=== PATIENT | female | born 1960 | race Caucasian/White ===

== ENCOUNTER 2019-05-30 11:55 | Inpatient (IN) | payer BC ==
[~2019-05-30] VITALS: Ht 157.5 cm; Wt 161.5 kg
[2019-05-30 13:01] LABS: ABSOLUTE EOSINOPHILS 0.1 thou/uL (0.0-0.7); ABSOLUTE LYMPHOCYTES 1.1 thou/uL (0.8-5.3); ABSOLUTE MONOCYTES 1.6 thou/uL (0.0-1.2); ABSOLUTE NEUTROPHILS 13.1 thou/uL (1.6-8.1); BASOPHILS 0.3 %; EOSINOPHILS 0.4 %; HEMATOCRIT 41.5 % (37.0-47.0); HEMOGLOBIN 13.2 gm/dL (12.0-15.0); MCH 22.7 pg (26.0-34.0); MCHC 31.8 g/dL (28.0-37.0); MCV 71.4 fL (80.0-100.0); MONOCYTES 9.9 %; MPV 8.4 fl. (7.2-11.1); NUCLEATED RBCS 0 /100WBC; PLATELET COUNT* 395 thou/uL (150-400); POLYS 82.4 %; RBC 5.82 mil/uL (4.20-5.00); RDW-CV 21.4 % (10.5-14.5)
[2019-05-30 13:11] LABS: CALCIUM 9.1 mg/dL (8.5-10.1); CREATININE 2.5 mg/dL (0.6-1.3)
[2019-05-30 13:23] LABS: PLATELET ESTIMATE ADEQUATE
[2019-05-30 13:27] LABS: ALBUMIN 2.3 g/dL (3.4-5.0); TOTAL BILIRUBIN 0.8 mg/dL (<0.1-1.0); TOTAL PROTEIN 8.4 g/dL (6.4-8.2)
--- NOTE | 2019-05-30 15:00 | NUR ---
WOUND CARE NOTE: REQUESTED TO SEE PATIENT WITH MULTIPLE WOUNDS. UPON ENTERING ROOM, FOUL ODOR NOTED. NOTED FECES TO BOTTOMS OF FEET DURING CLEANSING WITH SOAP AND WATER. TOENAILS ARE EITHER LONG AND AMERICO'S HORN LIKE OR MISSING. PATIENT ADMITS TO THEM FALLING OFF. BILATERAL LEGS ARE EDEMATOUS CHRONIC THICKENING NOTED, POSSIBLY FROM CHRONIC LYMPHEDEMA. RIGHT HEEL: DEEP TISSUE INJURY MEASURING APPROXIMATELY 2X2. NO OPENINGS OR DRAINAGE NOTED. PURPLE DISCOLORATION. LEFT OPEN TO AIR LEFT HEEL: UNSTAGEABLE PRESSURE ULCER MEASURING 7.2X6X0.8. BLACK, MOIST, ESCHAR TO APROXIMATELY 85% OF THE WOUND BED. 15% RED, MOIST, GRANULAR. LEONARDO-WOUND IS DRY, PEELING, DISCOLORED. CLEANSED HEEL WITH SOAP AND WATER, PATTED DRY. APPLIED AQUACEL AG THEN APPLIED OPTIFOAM AG AND SECURED WITH KERLIX. BILATERAL LEGS WERE WASHED WITH SOAP AND WATER, APPLIED LOTION TO INTACT SKIN. RIGHT GONCALVES WITH AN ULCERATION MEASURING APPROXIMATELY 1.5X1.5X0.3. PINK, MOIST WOUND BED. APPLIED AQUACEL AG AND COVERED WITH BORDERED FOAM. RIGHT, MEDIAL, HALLUX WITH LESION, PATIENT STATES IT IS FROM A RUG BURN. WOUND MEASURES 4.5X1.2X0.2. MOIST, YELLOW, RED WOUND BED. CLEANSED WITH SOAP AND WATER, PATTED DRY. APPLIED AQUACEL AG AND COVERED WITH BORDERED FOAM. DENUDED SKIN UNDERNEATH ABDOMINAL FOLD AND GROIN SITES. MULTIPLE LESIONS IN THESE AREAS TOO, CANDIDIA RASH/FUNGAL RASH APPARENT. UNABLE TO FULL ASSESS THIS AREA. BILATERAL BUTTOCKS AND UPPER POSTERIOR THIGHS WITH DERMATITIS COULD BE FROM INCONTINENCE OR DIAPHORESIS. LEFT ISCHIAL TUBEROSITY WITH DEEP TISSUE INJURY APPROXIMATELY 7X7X0.1. PURPLE DISCOLORATION. DIFFICULT TO PERFORM FULL ASSESSMENT AT THIS TIME DUE TO PATIENT'S PAIN AND LIMITATIONS IN ASSISTING DURING ASSESSMENT. PATIENT'S DAUGHTER AND SIGNIFICANT OTHER IN ROOM DURING ASSESSMENT TOO. UPDATED ON FINDINGS. RECOMMEND COMPELLA LOW AIR LOSS MATTRESS KEEP HEELS OFF BED TURN Q2 HOURS LIMIT HOB <30 DEGREES IF PATIENT CAN TOLERATE ENCOURAGE GOOD NUTRTION/HYDRATION BATHS DAILY PODIATRY CONSULT-TOENAILS TRIM AND LEFT HEEL ULCERATION
--- NOTE | 2019-05-30 15:44 | EKG ---
[place] [address] ELECTROCARDIOGRAM REPORT Name: CLAUDIAAUGUSTIN Room: [place] [address] ADM IN ..#: [id number] Admission: 05/30/19 Attend Phys: Allison Cordon MD Discharge: Date of : 62 Report #: [id number] THIS REPORT FOR: //name// [facility] ED Test Date: 2019-05-30 Test Time: 14:11:03 Pat Name: AUGUSTIN TAYLOR Department: Room: [facility] Gender: F Mental Health Counselor: : 1960 Requested By: Stacie Faustin Order Number: [id number] MD: Amrik Covarrubias Measurements Intervals [place] Rate: 110 P: 77 VT: 151 QRS: 84 QRSD: 116 T: 46 QT: 350 QTc: 474 Interpretive Statements Sinus tachycardia LAE, consider biatrial enlargement Incomplete right bundle branch block Low voltage, precordial leads nonspecific ST-T abnormalities No previous ECG available for comparison Electronically Signed On 05-30-2019 15:44:14 GUIDANCE ADVISER by Amrik Covarrubias [email or web address] <ELECTRONICALLY SIGNED> By: Amrik Covarrubias MD, FAC 05/30/19 1544 1411 1411 Amrik Covarrubias MD, FAC /EPI
[2019-05-30] MEDS ORDERED: IBUPROFEN 600600 M1 PO (16:56)
[2019-05-30] MEDS ORDERED: VICKS SINEX15 M1 NASAL (16:58)
[2019-05-30 17:03] VITALS: BP 144/72
[2019-05-30 17:13] VITALS: BP 156/72
--- NOTE | 2019-05-30 18:25 | NUR ---
RECEIEVED REPORT FROM BONNIE DIAS IN ER OF EXPECTED ADMISSION AT 1615- DX: SEPSIS, RENAL FAILURE, DECUBITUS ULCER, ROBERT- PT ARRIVED TO ROOM 220 VIA BED AT 1640, AND DAUGHTER AT SIDE- VS 98.4 20 156/72 112 93% ON 2L VIA NC- ENTHONE SOLDER STRIPPER PLACED ORDERED, TRACING ST- PT A&O X4- INCONTINENT OF B/B- BED REST IN PLACE NOTED WITH Q HOUR TURNS R/T MULTIPLE WOUNDS, ULCERS, AND CANDIDIA- ABD OBESE/FIRM/RIGID, CELLULTIS WITH NOTED DRY DERMATITIS NOTED- PT REPORTS LAST BM 05/29/19- 2+ BLE EDEMA WITH REDNESS/DRY VENOUS STASIS NOTED- WOUND TO TIFFANIE HEELS AND COCCYX REPORTED TO BE EVALUATED IN ER PRIOR TO TRANSFER PER WN, WITH DRESSINGS NOTED IN PLACE- RIGHT BREAST NOTED WITH RED MOIST RASH, AREA CLEANED WITH WARM H2O, PAT DRY WITH INER DRY PLACED INDICATED- TIFFANIE PANNUS FOLDS CLEANED WITH WARM H2O AND SOAP, PATTED DRY WITH INNER DRY APPLIED INDICATED WELL- PICTURSE OBTAINED AND PLAED ON CHART FOR VIEWING-ORDER OBTAINED FOR MALDONADO PLACEMENT R/T MULTIPLE WOUNDS, AND PLACED ORDERED THIS SHIFT- IV NOTED TO RIGHT AC INTACT, IVF INFUSSING PRESCIBED- ID AND REHAB CONSULTS NOTED- BARIATRIC AIR MATTRESS DELIVERED THIS SHIFT AND PT TRANSFERED TO INDICATED- PT CLEANED WELL ALL OVER WITH WARM H2O AND SOAP INDCIATED R/T POOR HYGEINE UPON ADMISSION- PT REPORTS BE LIVING WITH HUSABND AND DAUGHTER, BUT HAS NOT BEEN OUT OF HOUSE FOR 2.5 YEARS AND LAYS ON THE COUCH AND IS INCONTINENT AT TIMES OF URINE AND BLADDER, AND NOT ALWAYS ABLE TO MOVE SELF-CALL LIGHT AND PERSONAL BELONGINGS WITH IN REACH- HOURLY ROUNDS IN PLACE R/T SAFETY/NEEDS- ALL NEEDS MET AT THIS TIME-[facility]
[2019-05-30 19:27] LABS: URINE BILIRUBIN NEGATIVE (Negative); URINE BLOOD 3+ (Negative); URINE COLOR YELLOW; URINE GLUCOSE-RANDOM NEGATIVE (Negative); URINE KETONES NEGATIVE (Negative); URINE LEUKOCYTES-REFLEX NEGATIVE (Negative); URINE NITRITE-REFLEX NEGATIVE (Negative); URINE PROTEIN 1+ (Negative); URINE UROBILINOGEN 0.2 E.U./dl (0.2-1.0)
[2019-05-30 19:28] LABS: URINE CLARITY HAZY
[2019-05-30 19:36] LABS: HYALINE CASTS 0-3 Few /LPF (None Seen); MUCUS 0-3 Light strn/LPF (None Seen); SQUAMOUS 0-3 Few /LPF (0-3); URINE WBC-REFLEX 0-5 Rare /HPF (0-5)
[2019-05-30 19:37] LABS: CELLULAR CASTS 0-3 Few /LPF (None Seen)
[2019-05-30 20:00] VITALS: BP 141/69
[2019-05-31] VITALS: BP 129/64
[2019-05-31 04:00] VITALS: BP 123/65
[2019-05-31 05:20] LABS: HEMATOCRIT 38.3 % (37.0-47.0); HEMOGLOBIN 11.9 gm/dL (12.0-15.0); MCH 22.6 pg (26.0-34.0); MCHC 31.1 g/dL (28.0-37.0); MCV 72.6 fL (80.0-100.0); MPV 8.4 fl. (7.2-11.1); RBC 5.27 mil/uL (4.20-5.00); RDW-CV 21.5 % (10.5-14.5); WBC 9.9 thou/uL (4.0-11.0)
--- NOTE | 2019-05-31 05:34 | NUR ---
PT HAS C/O INCREASED PAIN FROM MOVEMENT D/T WOUNDS. DRAINAGE FROM WOUNDS CAUSED NEED FOR BED CHANGE AND CLEANING OF THE SKIN WHICH PT DID NOT TOLERATE WELL. PARTIAL RELIEF WITH PRN MEDICATION NOTED. PT UNABLE TO PREFORM ANY SELF CARES AND REQUIRES MAX ASSIST WITH TURNS. PT IS CURRENTLY ASLEEP IN BED WITH CALL LIGHT WITHIN REACH.
[2019-05-31 05:56] LABS: ALBUMIN 1.7 g/dL (3.4-5.0); CALCIUM 8.2 mg/dL (8.5-10.1); MAGNESIUM 1.9 mg/dL (1.8-2.4); POTASSIUM 3.5 mmol/L (3.5-5.1); TOTAL BILIRUBIN 0.5 mg/dL (<0.1-1.0); TOTAL PROTEIN 6.6 g/dL (6.4-8.2)
[2019-05-31 06:03] LABS: CREATININE 1.3 mg/dL (0.6-1.3)
[2019-05-31 09:10] VITALS: BP 140/67
--- NOTE | 2019-05-31 09:10 | NUR ---
ASSUMED CARE AFTER REPORT APPROX 0730. OX4, ABLE TO EXPRESS NEEDS TO STAFF. ASSESSMENT COMPLETE. VS OBTAINED, WNL, O2 SAT 96% 3L NC. DIRECTOR OF STUDENT LIFE IN PLACE, ST. CALL LIGHT IN REACH. HOURLY ROUNDING FOR SAFETY/NEEDS.
[2019-05-31 12:00] VITALS: BP 140/65
[2019-05-31 16:00] VITALS: BP 148/64
--- NOTE | 2019-05-31 19:00 | NUR ---
PROVIDED WOUND CARE WITH ASSISTANCE OF ASSISTANT SURVEYOR. PATIENTED RECEIVED PAIN MEDICATION PRIOR TO WOUND CARE. PATIENT EXPRESSED VERBALLY THAT PROCEDURE OF PROVIDING WOUND CARE TO GROIN, BREAST AND PANNUS FOLDS WAS EXTREMELY PAINFUL. PATIENT FATIGUED AFTER THIS AMOUNT OF WOUND CARE. FURTHER WOUND CARE DEFERRED TO NOC SHIFT. REPORT GIVEN TO NOC RN ABOUT WOUND CARE NEEDED. PAINTED TOES WITH BETADINE PER DR. HAIRSTON'S ORDER. CALL LIGHT IN REACH. FAMILY AT BEDSIDE.
[2019-05-31 20:00] VITALS: BP 151/72
[2019-06-01] VITALS: BP 147/81
[2019-06-01 02:12] LABS: GLYCOHEMOGLOBIN (HGB A1C) 6.3 % (4.8-5.6)
[2019-06-01 04:00] VITALS: BP 129/68
--- NOTE | 2019-06-01 05:05 | NUR ---
ASSUMED CARE OF PT AFTER REPORT AT 1930. PT A&OX4. VSS. PHYSICAL ASSESSMENT COMPLETED AND CHARTED. PT ON O2 AT 3L NC. PT TRACING ST/PVC ON TELE. PT WITH MALDONADO TO DEPENDENT DRAIN. PT COMPLAINED OF GENERALIZED BODY PAIN-MEDS GIVEN PER MAR. PT TURNED TO SIDES. PT ABLE TO SLEEP WELL ON BED. CALL LIGHT WITHIN REACH.
[2019-06-01 08:00] VITALS: BP 158/64
--- NOTE | 2019-06-01 09:13 | CON ---
[address] [address] CONSULTATION Name: AUGUSTIN TAYLOR Room: [address] IN M.R.#: [id number] Admission: 05/30/19 Attend Phys: Allison Cordon MD Discharge: Date of : 62 Report #: [id number] THIS REPORT FOR: //name// CC: [facility] physician/PCP Allison Cordon DATE OF SERVICE: 05/31/2019 INFECTIOUS DISEASE CONSULTATION ATTENDING PHYSICIAN: Dr. Cordon. REASON FOR EVALUATION: Sepsis, possible pneumonitis, extensive decubitus ulcers as well as possible skin and soft tissue infection. HISTORY OF PRESENT ILLNESS: Chart reviewed, patient examined. This is a 59-year-old without known significant medical history really had not been evaluated by medical personnel for a number of years, who apparently fell. She is unable to give details. She had received some narcotic analgesics and is quite somnolent. She notes she has generalized pain and discomfort. Does have a chronic cough, productive of whitish sputum. She says she is a smoker. It is not clear that she had fevers. On evaluation, noted lactic acid elevated at 4.2. Blood cultures collected now with growth of gram-positive cocci. White count was elevated at 16,000. Hemodynamics are relatively stable, although she is mildly tachypneic and tachycardic, empirically started on therapy with vancomycin, fluconazole, and ceftriaxone. ALLERGIES: CODEINE. PAST MEDICAL HISTORY: On admission, denied any medical history. SOCIAL HISTORY: Occasional ethanol, smokes a pack a day for a number of years. No illicit drug use. FAMILY HISTORY: Noncontributory. REVIEW OF SYSTEMS: Somewhat not reliably obtained. PHYSICAL EXAMINATION: GENERAL: She is obese. She is lethargic to somnolent, does open her eyes, very minimal response to questions, at least mildly encephalopathic, morbidly obese. VITAL SIGNS: Temperature 99.2, pulse 112, respirations 20, and blood pressure 123/65. SKIN: Warm. Extensive superficial ulcerations around the limbs including the [address] [place] [address] CONSULTATION Name: AUGUSTIN TAYLOR Room: [address] IN [facility]#: [id number] Admission: 05/30/19 Attend Phys: Allison Cordon MD Discharge: Date of : 62 Report #: [id number] feet, chronic venous stasis insufficiency and dermatitis of the lower extremities. There is a large pannus, inflammatory eruption as well. HEENT: Nasal cannula oxygen in place. Normocephalic. Extraocular muscles intact. NECK: Supple. LUNGS: She has diminished overall, a few scattered coarse breath sounds. HEART: Tachycardic, regular. ABDOMEN: Somewhat tender. GENITOURINARY: Deferred. RECTAL: Deferred. LABORATORY DATA: Arterial Doppler is limited in order to make any diagnostic evaluations, no evidence of DVT. Blood cultures described above, gram-positive cocci, 2 out of 2. CBC: White count of 9.9, H and H 11.9, and platelets 283. Electrolytes: Sodium 138, potassium 3.5, chloride 104, bicarbonate 25, anion gap of 9, BUN and creatinine 56 and 1.3, the latter down from 2.5 on admission. LFTs generally unremarkable. Alkaline phosphatase of 143, albumin 17, total protein of 6.6, and estimated GFR of 42. Urinalysis 0-5 white cells. TSH of 1.749. ASSESSMENT AND PLAN: Sepsis. I would presume a gram-positive cocci in blood cultures represent a true positive. Continue therapy with the combination, may well be a skin and soft tissue source. At this point, no evidence of urinary tract infection, can exclude an early pneumonitis as well. Continue supportive care with supplemental oxygen as needed. We will likely need to reduce incentive spirometry when she is able. We will await the identification of blood cultures. Continue wound care as prescribed. Given her overall situation, she is certainly at risk for having a more severe illness. We will monitor expectantly. <ELECTRONICALLY SIGNED> By: Neil Almanza MD 06/01/19 0913 1101 1936Josurendra Almanza MD /nt
[2019-06-01 10:21] LABS: ABSOLUTE EOSINOPHILS 0.1 thou/uL (0.0-0.7); ABSOLUTE LYMPHOCYTES 1.1 thou/uL (0.8-5.3); ABSOLUTE MONOCYTES 1.2 thou/uL (0.0-1.2); ABSOLUTE NEUTROPHILS 6.5 thou/uL (1.6-8.1); BASOPHILS 0.2 %; EOSINOPHILS 1.3 %; HEMATOCRIT 35.7 % (37.0-47.0); LYMPHOCYTES 12.6 %; MCH 22.6 pg (26.0-34.0); MCHC 30.8 g/dL (28.0-37.0); MCV 73.4 fL (80.0-100.0); MPV 8.4 fl. (7.2-11.1); NUCLEATED RBCS 0 /100WBC; PLATELET COUNT* 224 thou/uL (150-400); POLYS 72.9 %; RBC 4.86 mil/uL (4.20-5.00); RDW-CV 20.6 % (10.5-14.5)
[2019-06-01 10:29] LABS: CALCIUM 7.4 mg/dL (8.5-10.1); CREATININE 0.8 mg/dL (0.6-1.3); POTASSIUM 3.5 mmol/L (3.5-5.1)
[2019-06-01 14:08] VITALS: BP 156/86
[2019-06-01 16:27] VITALS: BP 190/90
[2019-06-01 20:00] VITALS: BP 177/85
[2019-06-02] VITALS: BP 175/102
[2019-06-02 04:00] VITALS: BP 161/92
[2019-06-02 05:32] LABS: HEMOGLOBIN 11.3 gm/dL (12.0-15.0); MCH 22.7 pg (26.0-34.0); MCHC 31.3 g/dL (28.0-37.0); MCV 72.7 fL (80.0-100.0); MPV 7.7 fl. (7.2-11.1); RBC 4.95 mil/uL (4.20-5.00); WBC 10.3 thou/uL (4.0-11.0)
[2019-06-02 05:55] LABS: ALBUMIN 1.4 g/dL (3.4-5.0); CALCIUM 7.8 mg/dL (8.5-10.1); CREATININE 0.7 mg/dL (0.6-1.3); MAGNESIUM 1.3 mg/dL (1.8-2.4); POTASSIUM 3.7 mmol/L (3.5-5.1); TOTAL BILIRUBIN 0.3 mg/dL (<0.1-1.0); TOTAL PROTEIN 6.2 g/dL (6.4-8.2)
--- NOTE | 2019-06-02 07:27 | NUR ---
ASSUMED PATIENT CARE AT 1900. ASSESSMENT COMPLETED CHARTED. VSS. PATIENT IS ST ON THE MONITOR. PATIENT HAD INCREASED BLOOD PRESSURE DURING SHIFT. DOCTOR ALBERTA NOTIFIED, NO NEW ORDERS RECEIVED. WOUND CARE COMPLETED, PICTURES TAKEN. REPOSITIONED PT Q2H. HOURLY ROUNDING IN PLACE FOR PATIENT SAFETY. CLWR.
--- NOTE | 2019-06-02 12:34 | NUR ---
Pt out of room at [place], will attempt to assess later. TOMAS spoke with Tiki at the Dept of [facility], regarding a hotline call. Tiki requests to be updated once disposition plans are in place [phone]. Plan for someone from [facility] to come out and see Pt at home point. Following.
[2019-06-02 16:43] VITALS: BP 163/84
[2019-06-02 20:00] VITALS: BP 181/81
[2019-06-02 23:00] VITALS: BP 157/80
--- NOTE | 2019-06-03 07:37 | NUR ---
ASSUMED PATIENT CARE AT 1900. ASSESSMENT COMPLETED CHARTED. DR. MCLEOD NOTIFIED OF ELEVATED BP, NEW ORDERS RECEIVED. PATIENT IS MED-SURG. HOURLY ROUNDING IN PLACE FOR PATIENT SAFETY. CLWR.
[2019-06-03 07:52] VITALS: BP 159/91
--- NOTE | 2019-06-03 10:28 | NUR ---
Pt is A&O. Resides at home with her and 20 year old dtr. Pt admits to be debilitated at home, unable to complete most ADLs and IADLs. Pt's works out of the state and is gone most of the time. Dtr works at [employer] and is a "normal 21 y/o." Pt states that she eats a lot of freezer meals and fresh fruit/veggies. Pt states that she is able to walk, very short distances with her walker. If she is unable to walk, Pt states that she puts a ana maria on the floor and uses the bathroom on the ana maria. Pt spends most of her day in a chair in the living room. Pt has a walker and cane that she uses for mobility, states that she wants a wc. No home o2. Pt states that she hasn't seen a Dr in 20 years. Receives SSI, worked as an [employer]. No hx of or SNF. TOMAS spoke with Demetrio from [facility] yesterday, he informed of the conditions of Pt's home and health, concerns noted. Per Demetrio, logistically, it would be impossible for Pt to get in and out of her home, as [place] with multiple steps to enter. Pt tearful and wanting help, but states that she did not know how to access help. CM informed Pt of the hotline call to [facility], and informed her that this could be an opportunity to locate the assistance that she needs at home. Pt open to going to skilled at [place], CM provided Pt with a list of SNF locations that accept her insurance. CM encouraged Pt to work with therapies. CM to f/u regarding facility choice. CM to remain in contact with Tiki from [facility]. Following.
[2019-06-03 11:45] VITALS: BP 192/109
[2019-06-03 12:11] LABS: HDL CHOLESTEROL 26 mg/dL (>40)
[2019-06-03 12:23] LABS: CHOLESTEROL 121 mg/dL (<200); LDL CHOLESTEROL 81 mg/dL (<100); SERUM ASSESSMENT Clear; TC:HDL 4.7 Ratio (Not establshd); TRIGLYCERIDE 73 mg/dL (<150); VLDL 15 mg/dL (<40)
--- NOTE | 2019-06-03 16:35 | NUR ---
ZOIE RESTING IN BED. VSS. NEW CARDIAC MEDICATIONS STARTED TODAY FOR MANAGEMENT OF HTN. WOUND CLEANING AND WOUND CARE PERFROMED TODAY. HOURLY ROUNDING COMPLETED FOR PATIENT CARE. BRIANNET IN AUTO TURN SPECIALTY AIR BED BUT REFUSES AUTO TURN FUNCTION IT CREATES AN UNCOMFORTABLE POSITION FOR HER. FREQUENT TURNS AND REPOSITIONING.
--- NOTE | 2019-06-03 17:09 | 2DMMODE ---
[place] [address] 2 D/M-MODE ECHOCARDIOGRAM Name: CLAUDIAAUGUSTIN Room: [address] IN [facility]#: [id number] Admission: 05/30/19 Attend Phys: Allison Cordon, Discharge: Date of : 62 Date of Service: 06/03/19 1709 Report #: [id number] THIS REPORT FOR: //name// APPROVED REPORT Study performed: 06/03/2019 14:06:56 EXAM: Comprehensive 2D, Doppler, and color-flow Echocardiogram Patient Location: In-Patient Room #: 220 Status: routine BSA: 2.44 HR: 99 bpm BP: 192/109 mmHg Rhythm: NSR Other Information Technically limited study due to patient could not tolerate apical views. Indications Sepsis 2D Dimensions IVSd: 13.17 (7-11mm) LVOT Diam: 20.87 (18-24mm) LVDd: 43.04 mm PWd: 11.64 (7-11mm) Ascending Ao: 31.85 (22-36mm) LVDs: 21.70 (25-40mm) Aortic Root: 34.58 mm Aortic Valve AoV Peak Alok.: 1.44 m/s AO Peak Gr.: 8.32 mmHg AO Mean Gr.: 5.01 mmHg AO V2 VTI: 22.06 cm Pulmonary Valve PV Peak Alok.: 1.02 m/s PV Peak Gr.: 4.17 mmHg Tricuspid Valve RAP Estimate: 5.00 mmHg TR Peak Gr.: 40.08 mmHg RVSP: 45.00 mmHg PA Pressure: 45.00 [place] [address] 2 D/M-MODE ECHOCARDIOGRAM Name: TONY TAYLORNA Room: [address] IN [facility]#: [id number] Admission: 05/30/19 Attend Phys: Allison Cordon, Discharge: Date of : 62 Date of Service: 06/03/19 1709 Report #: [id number] The left ventricle is normal size. There is normal LV segmental wall motion. Mild concentric left ventricular hypertrophy. Left ventricular systolic function is normal. The left ventricular ejection fraction is within the normal range. LVEF is 60-65%. This study is not technically sufficient to allow evaluation of the LV diastolic function. Right Ventricle The right ventricle is normal size. The right ventricular systolic function is normal. Atria The left atrium size is normal. The right atrium size is normal. Aortic Valve The aortic valve is normal in structure. No aortic regurgitation is present. There is no aortic valvular stenosis. Mitral Valve The mitral valve is normal in structure. There is no mitral valve regurgitation noted. No evidence of mitral valve stenosis. Tricuspid Valve The tricuspid valve is normal in structure. Mild tricuspid regurgitation. estimated pa pressure 50 mm Hg Pulmonic Valve Pulmonic valve is not well visualized. There is no pulmonic valvular regurgitation. Great Vessels The aortic root is normal in size. IVC is normal in size and collapses >50% with inspiration. Pericardium There is no pericardial effusion. <Conclusion> Mild concentric left ventricular hypertrophy. LVEF is 60-65%. [place] [address] 2 D/M-MODE ECHOCARDIOGRAM Name: CLAUDIATONY RICKSNA Room: [address] IN M.R.#: [id number] Admission: 05/30/19 Attend Phys: Allison Cordon, Discharge: Date of : 62 Date of Service: 06/03/191708 Report #: [id number] Mild tricuspid regurgitation. estimated pa pressure 50 mm Hg <ELECTRONICALLY SIGNED> By: Mainor Kenny MD, FACC 06/03/191708 08 08 Mainor Kenny MD, FACC /INF
[2019-06-03 20:00] VITALS: BP 141/78
[2019-06-04] VITALS: BP 170/96
[2019-06-04 05:36] LABS: MAGNESIUM 1.2 mg/dL (1.8-2.4)
--- NOTE | 2019-06-04 07:30 | NUR ---
CM spoke with Tracey at [facility], they are unable to accept Pt d/t the need for bariatric equipment, they are unable to meet that need. CM to fax additional referrals today.
--- NOTE | 2019-06-04 07:58 | NUR ---
ASSUMED PATIENT CARE AT 1900. ASSESSMENT COMPLETED CHARTED. PATIENT IS MED-SURG. HOURLY ROUNDING IN PLACE FOR PATIENT SAFETY. CLWR.
[2019-06-04 08:00] VITALS: BP 137/64
[2019-06-04 12:19] VITALS: BP 137/64
--- NOTE | 2019-06-04 12:33 | NUR ---
Mode from [facility] here to marlon Ayala
--- NOTE | 2019-06-04 14:09 | NUR ---
CONSUTLED TO PLACE PICC FOR BURNER HAND ATB THERAPY. CHART REVIEWED. SPOKE WITH PT AND RISK/BENEFIT REVIEWED. PT VOICED UNDERSTANDING ADN AGREED TO PROCEDE. RIGHT UPPER ARM ASSESSED WITH ULTRASOUND. RIGHT BASILIC IDENTIFIED AND NOTED TO BE WIDLEY PATENT. 4FR SINGLE LUMAN POWER PICC PLACED WITH EASE. LINE PRETRIMMED TO 44CM AND ADVANCED 44CM. GOOD BRIKS BLOOD RETURN NOTED AND FLUSHED WITH EASE. SHERLOCK SHOWS LINE GOING DOEN TO SVC BUT COULD NOT READ INTERNAL EKG. STAT CHEST XRAY ORDERED. LINE SECURED.
--- NOTE | 2019-06-04 15:20 | CON ---
[address] [address] CONSULTATION Name: CLAUDIAAUGUSTIN Room: [address] ADM IN .R.#: [id number] Admission: 05/30/19 Attend Phys: Allison Cordon MD Discharge: Date of : 62 Report #: [id number] THIS REPORT FOR: //name// CC: [facility] physician/PCP Allison Cordon DATE OF SERVICE: 05/31/2019 ADMISSION DIAGNOSES: Leg cellulitis, morbid obesity, septicemia, and generalized debility. HISTORY OF PRESENT ILLNESS: The patient admitted for septicemia, generalized debility, cellulitis and recent fall. She has been housebound for roughly 2-1/2 years, relates increasing obesity, debility and lack of movement. She mostly lies on the couch during the day. She denies fevers, chills, night sweats, or malaise. I reviewed her past medical history and medications. She has bilateral heel wounds, the left is a large full-thickness ulceration with necrotic tissue. The right heel wound is a stage 0 with some underlying skin shadowing with intact epithelium. She has chronic lymphedema and lipodermatosclerosis of both legs. She is on parenteral vancomycin, ceftriaxone and fluconazole. Arterial Dopplers was a limited study due to physiologic impedance due to obesity. Blood culture positive x 1 for gram-positive cocci. LABORATORY DATA: WBC 9.9, RBC 5.27, hemoglobin 11.9, hematocrit 38.3, and platelets 283. BUN 56, creatinine 1.3, glucose 76, albumin 1.7, and lactic acid 1.6. PHYSICAL EXAMINATION: Large full-thickness ulceration to the left inferior calcaneus that measures roughly 8 cm diameter. The wound has brown/black fibronecrotic tissue with no granulation or healthy tissue. There is no exposed bone or tendon. There is localized inflammation to the periwound. No underlying fluctuance or crepitation. The right inferior heel has some shadowing under the skin indicative of subdermal hemorrhage. Both legs have advanced lymphedema with likely venous insufficiency component. Toenails are dystrophic consistent with onychomycosis. Her pedal pulses are nonpalpable, but her feet are warm. IMPRESSION: Left inferior heel wound with soft tissue infection, no signs of osteomyelitis. Lymphedema, morbid obesity. PLAN: Excisional ulcer debridement to the left inferior heel with a scalpel to remove subcutaneous tissue that included necrotic tissue from the fatty subcutaneous layer. This was an excisional surgical debridement with a #10 scalpel blade. Portions of tissue were sent for both aerobic and anaerobic culture. Debridement occurred over an area of roughly 40 square cm. Bleeding was stopped with pressure. The wound was cleansed with [place] [address] CONSULTATION Name: AUGUSTIN TAYLOR Room: [address] IN M.R.#: [id number] Admission: 05/30/19 Attend Phys: Allison Cordon MD Discharge: Date of : 62 Report #: [id number] Xeroform, 4 x 4s, and Kerlix gauze. The patient to remain nonweightbearing on the extremity and daily dressing changes as ordered by Tea Wells, the wound nurse. I will follow the patient during her hospitalization. <ELECTRONICALLY SIGNED> By: Larry Pack DPM 06/04/19 1520 1026 [id number] Pack DPM /nt
--- NOTE | 2019-06-04 16:17 | NUR ---
ASSUMED PT CARE AT 0730. ASSESSMENT COMPLETED CHARTED. ABLE TO MAKE NEEDS KNOWN. RESTING IN BED MOST OF THE DAY. FAMILY AT BEDSIDE SOME OF THE DAY. UP WITH SBA TO BSC R/T SOA ON EXCERSION. NO C/O PAIN OR DISCOMFORT. WILL CONTINUE TO MONITOR.
--- NOTE | 2019-06-04 16:29 | NUR ---
ASSUMED PT CARE AT 0730. ASSESSMENT COMPLETED CHARTED. ABLE TO MAKE NEEDS KNOWN. UNABLE TO GET OUT OF BED DUE TO NWB ON RIGHT FOOT, WEIGHT, AND PAIN IN RIGHT SHOULDER. PICC LINE INSERTED TODAY. PAIN MEDICATION GIVEN PRN FOR SHOULDER PAIN PER EMAR. [id number] COMPLETED CHARTED. BARRIER CREAM PUT ON BOTTOM NEEDED. CHANGED INTERDRY X1 TODAY. WILL CONTINUE TO MONITOR.
[2019-06-04 20:10] VITALS: BP 154/77
--- NOTE | 2019-06-05 06:52 | NUR ---
Pt is aox4, respirations are even and unlabored. Pt is in no acute distress. Will continue to monitor.
--- NOTE | 2019-06-05 07:01 | NUR ---
THIS RN AGREES WITH THE ASSEMENT AND CHARTING OF ADOLFO NICOLE.
[2019-06-05 08:00] VITALS: BP 124/87
[2019-06-05 17:02] VITALS: BP 125/68
[2019-06-05 19:40] VITALS: BP 127/61
[2019-06-06] VITALS: BP 146/75
--- NOTE | 2019-06-06 07:50 | NUR ---
PT CARE ASSUMED AT 1930. SAT MAINTAINED IN O2. ALERT AND ORIENTED X4. C/O PAIN, MEDICATION GIVEN PER EMAR. CALL LIGHT WITHIN REACH AND BED IN LOW POSITION. DRESSING CHANGED ON ALL OF HER WOUNDS. HOURLY ROUNDING DONE FOR PT SAFETY.
[2019-06-06 08:00] VITALS: BP 132/61
--- NOTE | 2019-06-06 12:43 | NUR ---
ASSUMED PT CARE AT 0800, AOX4, BEDREST, O2 SAT 90'S RA. PT COMPLAINS OF GENERALIZED PAIN. PAIN MEDS GIVEN. PT MULTIPLE WOUNDS NOTED. PT Q2 TURN. PT ACCU CHECK. PT MALDONADO CATH DRAINING WELL. PT ON MRSA ISOLATION. PT WAITING FOR [facility] PLACEMENT/APPROVAL. VSS, AM ASSESSMENT CHARTED, HOURLY ROUNDING, CALL LIGHT WITHIN, WILL CONTINUE TO MONITOR.
[2019-06-06 16:00] VITALS: BP 138/70
[2019-06-06 20:00] VITALS: BP 125/64
[2019-06-07] VITALS: BP 117/77
--- NOTE | 2019-06-07 07:05 | NUR ---
VSS. SEE MAR. SEE CHARTING. PROGRESSING TOWARDS GOALS. FALL PRECAUTIONS IN PLACE. HOURLY ROUNDING FOR SAFETY.
[2019-06-07 08:00] VITALS: BP 128/69
[2019-06-07 16:10] VITALS: BP 162/86
--- NOTE | 2019-06-07 19:37 | NUR ---
ASSUMED CARE OF PT APPROX 0730. REASSESSSMENT COMPLETED CHARTED. MEDICATIONS GIVEN CHARTED. PT WORKED WITH THERAPY THIS MORNING, AND SAT ON THE SIDE OF THE BED WITH THERAPY. PT O2 TITRATED TO 2L THIS AFTERNOON, PTS O2 MAINTAINED 95% ON 2L. PTS FAMILY AT BEDSIDE THIS EVENING. WOUND CARE DONE THIS EVENING, DRESSINGS CAHNGED AND CHARTED ON. PT TOLERATED WELL. SAFTEY PRECAUTIONS UTILIZED, HOURLY ROUNDED.
[2019-06-07 20:10] VITALS: BP 119/68
[2019-06-08 00:39] VITALS: BP 124/60
--- NOTE | 2019-06-08 06:33 | NUR ---
PT CARE ASSUMED AT 1930. SAT MAINTAINED IN O2. ALERT AND ORIENTED X4. CALL LIGHT WITHIN REACH AND BED IN LOW POSITION. C/O PAIN, MEDICATION GIVEN PER EMAR. HOURLY ROUNDING DONE FOR PT SAFETY.
[2019-06-08 08:00] VITALS: BP 120/64
[2019-06-08 19:49] VITALS: BP 136/45
[2019-06-08 19:51] VITALS: BP 149/62
--- NOTE | 2019-06-08 19:56 | NUR ---
ASSUMED PT CARE AT 0730. ASSESSMENT COMPLETED CHARTED. ABLE TO MAKE NEEDS KNOWN. ON BEDREST, [id number], A COUPLE WOUNDS REDRESSED AND PICTURED. C/O PAIN IN SHOULDER AND ABD AND GAVE PRN PAIN MEDICATION PER EMAR. ISOLATION MAINTAINED. VSS. WILL CONTINUE TO MONITOR.
[2019-06-08 20:00] VITALS: BP 148/67
--- NOTE | 2019-06-09 04:42 | NUR ---
ASSUMED PT CARE AT APPROX 1930. PT IS AWAKE AND ORIENTED X4. VSS ON 2L OF O2/NC. NO DESATURATIONS NOTED. ASSESSMENT DONE AND CHARTED. WOUND CARE DONE. PATIENT REPOSITIONED Q2HRS. PAIN MEDS GIVEN PRN PER EMAR. CALL LIGHT WITHIN REACH. HOURLY ROUNDING DONE FOR PT SAFETY. HIGH FALL PRECAUTIONS IN PLACE.
[2019-06-09] MEDS ORDERED: HYDROCHLOROTH12.5 M2 PO (07:37)
[2019-06-09] MEDS ORDERED: GLUCOPHAGE500 MG PO (07:38)
[2019-06-09] MEDS ORDERED: DIPHENHYDRAMINE25 M3 PO (07:39)
[2019-06-09] MEDS ORDERED: LIDOCAINE1 EACH TRANSDERM (07:40)
[2019-06-09] MEDS ORDERED: MIRALAX17 G1 PO (07:41)
[2019-06-09] MEDS ORDERED: PROTONIX40 M2 PO (07:43)
[2019-06-09] MEDS ORDERED: CEFTRIAXON1 GM/50 M1 IVPB (07:45)
[2019-06-09] MEDS ORDERED: TYLENOL325 MG PO (07:46)
[2019-06-09] MEDS ORDERED: VENELEX OINTMEN60 GM TOP ×2 (07:47→07:48)
[2019-06-09] MEDS ORDERED: NEURONTIN300 MG PO (07:50)
[2019-06-09] MEDS ORDERED: VANCO 1 GR1 GM/250 M IVPB (07:50)
[2019-06-09 08:00] VITALS: BP 145/99
--- NOTE | 2019-06-09 08:44 | NUR ---
Cm spoke with [facility] from [facility], [employer] was closed on Sunday, [facility] in touch with insurance this AM working on getting insurance auth. Updated Pt's nurse.
[2019-06-09 10:25] VITALS: BP 145/99
[2019-06-09 11:59] VITALS: BP 137/66
[2019-06-09 20:00] VITALS: BP 141/68
[2019-06-09 23:43] VITALS: BP 140/70
[2019-06-10 07:40] VITALS: BP 128/78
--- NOTE | 2019-06-10 07:41 | NUR ---
ASSUMED PT CARE AT APPROX 1930. PT IS AWAKE AND ORIENTED X4. VSS ON 2L OF OO2/NC. PT IS REPOSITIONED EVERY 2HRS. WOUND CARE DONE NEEDED. PAIN MEDS GIVEN PER MAR. CALL LIGHT WITHIN REACH. HIGH FALL PRECAUTIONS IN PLACE. HOURLY ROUNDING DONE FOR PT SAFETY.
--- NOTE | 2019-06-10 09:51 | NUR ---
DHSS CW to complete visit with Pt today. Continue to await insurance auth
[2019-06-10 11:27] VITALS: BP 137/68
[2019-06-10 16:50] VITALS: BP 132/45
[2019-06-10 20:00] VITALS: BP 150/78
[2019-06-11] VITALS: BP 145/70
--- NOTE | 2019-06-11 03:39 | NUR ---
ASSUMED PT CARE AT APPROX 1930. PT IS AWAKE AND ORIENTED X4. VSS ON 2L OF O2/NC. ASSESSMENT DONE AND CHARTED. WOUND CARE DONE. PT REPOSITIONED Q2H. MEDS GIVEN PER EMAR. CALL LIGHT WITHIN REACH. HIGH FALL PRECAUTIONS IN PLACE. HOURLY ROUNDING DONE FOR PT SAFETY.
[2019-06-11 07:51] VITALS: BP 124/69
[2019-06-11 12:00] VITALS: BP 138/81
--- NOTE | 2019-06-11 12:26 | NUR ---
CM informed by [facility] that Pt does not have [facility] benefits. CM faxed skilled referrals to: [facility] p:[phone] [facility] p:[phone] [facility] p:[phone] [facility] p:[phone] [facility] p:[phone] [facility] p:[phone] [facility] p:[phone] f:[phone] [facility] p:[phone] [facility] p:[phone] f:[phone]
[2019-06-11 14:30] LABS: ABSOLUTE BASOPHILS 0.1 thou/uL (0.0-0.2); ABSOLUTE EOSINOPHILS 0.2 thou/uL (0.0-0.7); ABSOLUTE LYMPHOCYTES 1.7 thou/uL (0.8-5.3); ABSOLUTE MONOCYTES 0.7 thou/uL (0.0-1.2); ABSOLUTE NEUTROPHILS 8.3 thou/uL (1.6-8.1); BASOPHILS 0.5 %; EOSINOPHILS 1.5 %; HEMATOCRIT 32.7 % (37.0-47.0); HEMOGLOBIN 10.4 gm/dL (12.0-15.0); MCHC 31.9 g/dL (28.0-37.0); MCV 72.2 fL (80.0-100.0); MONOCYTES 6.1 %; MPV 7.8 fl. (7.2-11.1); NUCLEATED RBCS 0 /100WBC; PLATELET COUNT* 277 thou/uL (150-400); POLYS 75.9 %; RBC 4.53 mil/uL (4.20-5.00); RDW-CV 20.4 % (10.5-14.5); WBC 10.9 thou/uL (4.0-11.0)
[2019-06-11 14:52] LABS: ALBUMIN 1.6 g/dL (3.4-5.0); CALCIUM 8.4 mg/dL (8.5-10.1); CREATININE 0.6 mg/dL (0.6-1.3); POTASSIUM 3.8 mmol/L (3.5-5.1); TOTAL BILIRUBIN 0.2 mg/dL (<0.1-1.0); TOTAL PROTEIN 6.8 g/dL (6.4-8.2)
--- NOTE | 2019-06-11 18:43 | NUR ---
ASSUMED PT CARE REPORT RECEIVED FROM NURSE PT IS AOX4 ON RA. MEDSURG STATUS. COMPLAINS OF PAIN. FENTANYL GIVEN. Q2TURN. NO FURTHER COMPLAINT. OUT OF BED OT CHAIR WITH PHYSICALTHERAPIST HELP. IV ABX GIVEN. WOUND IN LOWER BACK REDRESSED. PT HAD A BOWEL MVNT. WILL CONTINUE TO MONITOR
[2019-06-11 20:00] VITALS: BP 150/76
--- NOTE | 2019-06-11 21:57 | NUR ---
PT TRANSFERRED TO ROOM 309 FROM TELE. ALERT AND ORIENTED. OBESED. ON BARIATIC BED. MULTIPLE BODY WOUNDS. Q2 TURN. INCONTINENT OF BOWEL. MALDONADO IN PLACE. ISOLATIOB FOR MRSA. WILL CONTINUE TO MONITOR.
--- NOTE | 2019-06-12 05:31 | NUR ---
PT ALERT AND ORIENTED. ASSESSMENT DOCUMENTED. MULTIPLE WOUNDS. MEDS GIVEN PER EMAR. PAIN MEDS GIVEN MULTIPLE TIMES THIS SHIFT. ON BARIATIC BED. ISOLATION PRECAUTION IN PLACE. Q2 TURN. INCONTINENT OF BOWEL. HAD 2 BMs THIS SHIFT. VOIDING VIA MALDONADO. FALL PRECAUTION IN PLACE. CALL LIGHT WITHIN REACH. WILL CONTINUE TO MONITOR.
[2019-06-12 07:45] VITALS: BP 139/84
--- NOTE | 2019-06-12 15:50 | NUR ---
REQUEST BY NURSING FUNDRAISER TO ADMINISTER CATH BRISEYDA TO RT UPPER ARM SINGLE LUMEN PICC LINE. ABLE TO FLUSH PICC WITHOUT DIFFICULTY BUT UNABLE TO OBTAIN BLOOD RETURN. CATH BRISEYDA ADMINISTERED AT 1550 TO RIGHT UPPER ARM PICC LINE. LINE MARKED, DO NOT FLUSH. NURSE, TOYA, NOTIFIED TO NOT USE LINE. WILL RECHECK LINE FOR BLOOD RETURN AT 1620.
[2019-06-12 16:00] VITALS: BP 146/80
--- NOTE | 2019-06-12 16:01 | NUR ---
WOUND CARE NOTE: REASSESSMENT LEFT HEEL: DRESSING HAD SATURATED THROUGH-SEROSANGUINEOUS DRAINAGE. FOUL ODOR NOTED, BUT STOPPED AFTER CLEANSING WITH SOAP AND WATER. WOUND MEASURES 5.8X5.5X0.6. CONTINUES WITH UNSTAGEABLE CLASSIFICATION. 80% OF WOUND BED WITH BLACK, DRY ESCHAR 5% YELLOW, MOIST, ADHERENT ESCHAR. 15% RED, MOIST GRANULATION TISSUE. LEONARDO-WOUND WITH NEW EPITHELIUM. APPLIED AQUACEL AG. COVERED WITH ABD. SECURED WITH KERLIX. REAPPLIED OFFLOADING BOOT. RIGHT HEEL: EVOLVED DTI, NOW UNSTAGEABLE PRESSURE ULCER MEASURING 1.3X1. BLACK, DEVITALIZED TISSUE. HEALING, FLAT. CLEANSED WITH SOAP AND WATER, PATTED DRY. REAPPLIED OFFLOADING BOOT. ABDOMINAL PANNUS: AREA IS SIGNIFICANTLY IMPROVED FROM LAST ASSESSMENT. CLEANSED UNDER FOLD WITH SOAP AND WATER, DRIED WELL. ABDOMINAL LESION TO THE CENTER OF ABDOMINAL FOLD MEASURING 12.5X16X0.1. RED, MOIST GRANULATION TISSUE WITH ISLAND OF EPITHELIUM THROUGHOUT. APPLIED OPTIFOAM AG. APPLIED INTERDRY AG IN BETWEEN ABDOMINAL FOLD, SINGLE LAYER. LEFT SIDE OF ABDOMEN: FULL THICKNESS ULCERATION MEASURING 8X8X0.2. MOIST, YELLOW WOUND BED. CLEANSED WITH SOAP AND WATER, PATTED DRY. APPLIED OPTIFOAM AG AND SECURED WITH A TEGADERM. LEFT ISCHIAL TUBEROSITY: EVOLVED DTI TO AN UNSTAGEALBE PRESSURE ULCER. WOUND MEASURES 8.5X14X0.3. BLACK, MOIST, ADHERENT ESCHAR TO APPROXIMATELY 90% OF WOUND BED WITH 5% YELLOW ADHERENT ESCHAR AND 5% RED, NON-GRANULAR TISSUE. FOUL ODOR NOTED. DRAINING BROWN, SEROSANGUINEOUS DRAINAGE. WOUND WAS CLEANSED WITH SOAP AND WATER, PATTED DRY. APPLIED IODOSORB GEL AND COVERED WITH AND ABD THEN PAPER TAPE. LEFT SUPERIOR BUTTOCK WOUND: FULL THICKNESS ULCERATION MEASURING 1X1X0.2. RED, MOIST WOUND BED. CLEANSED WITH WOUND CLEANSER, PATTED DRY. LEFT DISTAL MOST BUTTOCK WOUND: FULL THICKNESS ULCERATION MEASURING 1.5X2.5X0.2. MOIST, RED, YELLOW WOUND BED. CLEANSED WITH SOAP AND WATER, PATTED DRY. APPLIED OPTIFOAM AG AND SECURED WITH AN OPSITE. RIGHT BUTTOCK WOUNDS: 3 FULL THICKNESS ULCERATIONS CLUSTERED MEASURE 6.3X4.5X0.1. MOIST, RED WOUND BEDS. CLEANSED WITH WOUND CLEANSER, PATTED DRY. APPLIED OPTIFOAM AG AND SECURED WITH OPSITE. EDUCATED PATIENT ON IMPORTANCE OF TURNING, CONTINUING WITH JOANA MATTRESS. COMMUNICATED UNDERSTANDING. EDUCATED IMPORTANCE OF CONTINUING WITH OFFLOADING BOOTS, COMMUNICATED UNDERSTANDING. EDUCATED ON LEFT ISCHIAL TUBEROSITY UNSTAGEABLE PRESSUE ULCER CONCERNS, COMMUNICATED UNDERSTANDING. SPOKE WITH SURGEON UPDATING OF FINDINGS. RECOMMEND ENCOURAGE GOOD NUTRTION/HYDRATION FOR WOUND HEALING CONTINUE WITH OFFLOADING BOOTS CONTINUE WITH COMPELLA JOANA MATTRESS TURN Q2 HOURS LIMIT HOB <30 DEGREES IF PATIENT CAN TOLERATE NEW WOUND CARE ORDERS OBTAINED FOLLOW UP IN WOUND CENTER UPON DISCHARGE
--- NOTE | 2019-06-12 16:09 | NUR ---
SW received message from pt insurance that pt does not have SNF benefits (in addition to no LTAC benefits) but that pt only has inpt rehab benefits on pt specific plan/contract. SW called insurance to confirm and discuss if there are any other options based on medical necessity but insurance informed that there is not way to change the contract, that this is just not benefits available to pt through pt plan. SW informed Dr Peralta and also spoke with hospital account liaison Rebeca to review referral for inpt rehab. SW to continue to follow to assist with safe dc planning.
--- NOTE | 2019-06-12 16:30 | NUR ---
REASSESSED RT UPPER ARM PICC LINE FOR BLOOD RETURN AFTER 30 MINUTE CATH BRISEYDA DWELL TIME. BRISK BLOOD RETURN OBTAINED. 5MLS OF BLOOD DRAWN AND WASTED FROM PICC. PICC FLUSHED EASILY WITH 20MLS NS. NO ADDITIONAL CATH BRISEYDA GIVEN.
--- NOTE | 2019-06-12 17:19 | NUR ---
PT A&OX4 VSS. PT REMAINS ON CONTACT ISOLATION. PT IS ACCUCHECK, GLUCOSE REMAINS IN RANGE. IV FENTANYL TO ADDRESS C/O DISCOMFORT THIS SHIFT, PT REPORTS RELIEF W/ THIS TX. PT URINARY CATHETER IS PATENT, YELLOW URINE VISIBLE IN COLLECTION BAG. PT INCONTINENT OF BOWELS. WOUND DRESSINGS CHANGED BY WOUND CARE NURSE THIS SHIFT, INTERDRY PLACED TO ABD FOLDS. DISCUSSION OF POSSIBLE FUTURE DEBRIDEMENT OF WOUND TO BUTTOCK, NO DECISION MADE AT THIS TIME. PT ON 2L O2 BY HI. LIDO PATCH TO R SHOULDER FOR PAIN RELIEF. NICOTINE PATCH PLACED TO L SHOULDER FOR SMOKING CESSATION. PICC FLUSHED BY SECRETARY OF POLICE THIS AFTERNOON WITH ALEPLASE, LINE PATENT, FLUSHING AND DRAWING AT THIS TIME. PT REMAINS ON CARB CONTROL DIET. PT RESTS IN BED WITH CALL LIGHT IN REACH. WILL CONTINUE TO MONITOR.
[2019-06-12 20:00] VITALS: BP 148/75
--- NOTE | 2019-06-13 05:11 | NUR ---
PT ALERT AND ORIENTED. FOREGETFUL AT TIMES. VSS ON 2L O2. PT SLEPT WELL THIS SHIFT. MEDS GIVEN PER EMAR. PAIN MEDS GIVEN MULTIPLE TIMES THIS SHIFT. Q2 TURN. BM NOTED THIS SHIFT. ISOLATION PRECAUTION IN PLACE. CALL LIGHT WITHIN REACH. HOURLY ROUNDINGS MADE. WILL CONTINUE TO MONITOR.
[2019-06-13 08:10] VITALS: BP 150/86
--- NOTE | 2019-06-13 15:37 | NUR ---
Pt working with PT and then with nursing. SW spoke with Dr Peralta regarding pt plan of care and dc planning. DC pending inpt rehab response. Pt not ready to be able to dc home safely at this time, needs to continue working with therapies and improve. SW to continue to follow to assist with safe dc planning.
[2019-06-13 16:00] VITALS: BP 163/75
--- NOTE | 2019-06-13 18:50 | NUR ---
PT A&OX4 VSS. BEDSIDE DEBRIDEMENT OF WOUND ON L BUTTOCK THIS AM. PT UP IN CHANG TO RECLINER BY PT. DRESSING VISUALIZED, AND REDRESSED WITH DR OTERO. ACCUCHECKS TO MONITOR BLOOD GLUCOSE. DRESSINGS TO INNER THIGHS APPLIED. PT RESTS IN BED WITH CALL LIGHT IN REACH. URINARY CATHETER PATENT, YELLOW URINE VISIBLE IN COLLECTION BAG. WILL CONTINUE TO MONITOR
[2019-06-13 19:30] VITALS: BP 142/70
[2019-06-13 23:57] VITALS: BP 121/70
[2019-06-14 09:14] VITALS: BP 130/67
[2019-06-14 11:40] LABS: ABSOLUTE BASOPHILS 0.1 thou/uL (0.0-0.2); ABSOLUTE EOSINOPHILS 0.4 thou/uL (0.0-0.7); ABSOLUTE LYMPHOCYTES 2.1 thou/uL (0.8-5.3); ABSOLUTE MONOCYTES 0.9 thou/uL (0.0-1.2); ABSOLUTE NEUTROPHILS 10.8 thou/uL (1.6-8.1); BASOPHILS 0.9 %; EOSINOPHILS 2.7 %; HEMATOCRIT 33.2 % (37.0-47.0); HEMOGLOBIN 10.4 gm/dL (12.0-15.0); LYMPHOCYTES 14.7 %; MCH 22.8 pg (26.0-34.0); MCHC 31.2 g/dL (28.0-37.0); MCV 73.2 fL (80.0-100.0); MONOCYTES 6.1 %; NUCLEATED RBCS 0 /100WBC; POLYS 75.6 %; RBC 4.54 mil/uL (4.20-5.00); RDW-CV 20.5 % (10.5-14.5); WBC 14.3 thou/uL (4.0-11.0)
[2019-06-14 12:36] LABS: PLATELET COUNT* 281 thou/uL (150-400)
[2019-06-14 12:37] LABS: MPV 7.8 fl. (7.2-11.1)
[2019-06-14 17:28] VITALS: BP 108/60
--- NOTE | 2019-06-14 18:13 | NUR ---
PATIENT AWAKE IN BED WITH FAMILY AT BEDSIDE. PATIENT TURNED AND REPOSITION Q2 HOURS AND ENCOURAGED TO MOVE AROUND ABLE. ALL SAFETY MEASURES MAINTAINED. PATIENT DENIES FURTHER NEEDS AT THIS TIME.
[2019-06-14 19:50] VITALS: BP 115/67
[2019-06-15 04:00] VITALS: BP 84/40
--- NOTE | 2019-06-15 05:56 | NUR ---
PT ALERT AND ORIENTED. ASSESSMENT DOCUMENTED. PT SLEPT OFF AND ON THIS SHIFT. PAIN MEDS GIVEN MULTIPLE TIMES THIS SHIFT. PT COMPLAINED OF CHEST PAIN WHICH SHE RATED A 6/10 AROUND 0050. EKG DONE AND SHOWED SINUS TACH OF HR 102 WHICH IS NOT UNSUAL FOR HER. PT SAID SHE FEELS ITS INDESTION. SPRITE WAS GIVEN AND PT WENT BACK TO SLEEP. AT ABOUT 0350. PT WAS UP AND COMPLAINING OF INDIGESTION. MYLANTA WAS GIVEN. VS WAS ALSO OBTAINED. BP WAS 84/40. HR 109. PT WAS SATTING IN THE 80'S ON RA. I PUT HER ON 2L, SHE WAS STILL SATTING IN THE 80'S AFTER FEW MINS SO I BUMPED HER TO 4L. PT'S O2 SAT CAME UP TO 96% ON 4L. i TURNED HER BACK DOWN TO 2L AND SAT WAS 94%. CALL LIGHT WITHIN REACH. HOURLY ROUNDINGS MADE. ISOLATION PRECAUTION IN PLACE. WILL CONTINUE TO MONITOR.
[2019-06-15 06:30] VITALS: BP 119/45
[2019-06-15 08:00] VITALS: BP 87/50
[2019-06-15 12:15] VITALS: BP 90/47
[2019-06-15 16:34] VITALS: BP 143/73
--- NOTE | 2019-06-15 18:05 | NUR ---
ASSUMED CARE AT 0730. ALERT ORIENTED PLEASANT COOPERATIVE. HX OF RENAL FAILURE AND WOUNDS. PT. IS IN BARIATRIC BED AND IN MRSA ISOLATION. MALDONADO PATENT WITH MADAI URINE TO DD BAG. APPETITE GOOD NO GERD OR ABDOMINAL PAIN TODAY. HAD HARD FORMED BM. TURNED EVERY 2 HRS FOR WOUND CARE. PTS. BP HAS BEEN LOW BUT WITHOUT SYMPTOMS. O2 SAT LOW AT TIMES O2 ON AT 2-4 L/M PER N/C MEDICATED FOR C/O PAIN WITH SOME RELIEF STATED. DR.. CARLOS AND HIMS DR. GARZA.
--- NOTE | 2019-06-15 18:54 | NUR ---
HOURLY ROUNDING COMPLETED. IV VANC INFUSED THIS AFTERNOON HAS PICC LINE ISRAEL.
[2019-06-15 20:20] VITALS: BP 112/59
[2019-06-16 05:28] LABS: ABSOLUTE BASOPHILS 0.1 thou/uL (0.0-0.2); ABSOLUTE EOSINOPHILS 0.3 thou/uL (0.0-0.7); ABSOLUTE LYMPHOCYTES 2.1 thou/uL (0.8-5.3); ABSOLUTE MONOCYTES 0.8 thou/uL (0.0-1.2); ABSOLUTE NEUTROPHILS 7.2 thou/uL (1.6-8.1); EOSINOPHILS 2.7 %; HEMATOCRIT 28.2 % (37.0-47.0); HEMOGLOBIN 8.9 gm/dL (12.0-15.0); LYMPHOCYTES 19.9 %; MCH 23.2 pg (26.0-34.0); MCHC 31.4 g/dL (28.0-37.0); MCV 73.8 fL (80.0-100.0); MONOCYTES 7.9 %; MPV 7.6 fl. (7.2-11.1); NUCLEATED RBCS 0 /100WBC; PLATELET COUNT* 286 thou/uL (150-400); POLYS 68.5 %; RBC 3.82 mil/uL (4.20-5.00); RDW-CV 20.6 % (10.5-14.5); WBC 10.5 thou/uL (4.0-11.0)
--- NOTE | 2019-06-16 05:34 | NUR ---
PT SLEPT WELL AFTER MIDNIGHT, RECEIVING IV AND PO PAIN MED WITH GOOD RESULT. O2 3L NC WHILE SLEEPING TO KEEP SATS >92% LISINOPRIL HELD AT HS. ISRAEL PICC, IV ABX GIVEN ORDERED. AM LABS DRAWN. DRESSING CHANGED TO LBUTTOCK THIS SHIFT DUE TO SOILING. DRSG TO R BUTTOCK, THIGH, ABDOMEN AND INTERDRY TO PANNUS AND GROIN CDI. HS ACCUCEHCK 142, NO MEDS GIVEN. L FOOT DRSG CDI, PRAFO BOOTS ON BLE. ON LOW AIR LOSS DELL BED, PT TURNED AND REPOSITIONED Q2 HOURS AND PRN SHE WOULD ALLOW AND REQUESTED. BLE ELEVATED ON PILLOWS PER PT REQUEST. NO CO CHEST PAIN OR GERD OVERNIGHT. REMAINS ON CONTACT ISOLATION FOR MRSA. WARM KPAD TO R SHOULDER WITH GOOD RELIEF OF PAIN. MALDONADO DRAINING YELLOW URINE. CM FOLLOWING FOR INSURANCE APPROVAL TO DISCHARGE SNF. AOX4, ABLE TO USE CALL LITE AND MAKE NEEDS KNOWN.
[2019-06-16 05:37] LABS: CALCIUM 8.3 mg/dL (8.5-10.1); CREATININE 0.8 mg/dL (0.6-1.3); POTASSIUM 4.5 mmol/L (3.5-5.1)
[2019-06-16 06:40] LABS: ANISOCYTOSIS 2+; MICROCYTES 1+; PLATELET ESTIMATE ADEQUATE
[2019-06-16 07:30] VITALS: BP 109/58
--- NOTE | 2019-06-16 12:13 | NUR ---
so sent referral to [facility] @ [phone] & Danny Tenorio @ [facility] @ [phone].
--- NOTE | 2019-06-16 14:25 | EKG ---
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 <ELECTRONICALLY SIGNED> By: Mainor Kenny MD, [facility] 06/16/19 1425 0055 0055 Mainor Kenny MD, [facility] /EPI
[2019-06-16 16:00] VITALS: BP 108/56
--- NOTE | 2019-06-16 17:33 | NUR ---
PT A&OX4 VSS. PT UP TO RECLINER FOR MEALS TODAY. PT TO GYM FOR PT TODAY. IV FENTANYL GIVEN FOLLOWING PT/OT. PT TRANSFERS WITH 2 OR MORE STAFF AND CHANG. IV VANC ADMINISTERED ORDERED. PO TRAMADOL FOR PAIN MANAGEMENT WELL. PT PICC TO [facility] REMAINS PATENT. CASE MANAGEMENT WORKING ON PLACEMENT FOR THIS PT. PT REMAINS ON CARB CONTROL DIET, ACCUCHECKS AC/HS. NO INSULIN ADMINISTERED, METFORMIN FOR GLUCOSE MANAGEMENT. PT SAT 95-97% ON 2L O2 NC. PT REMAINS ON CONTACT ISOLATION. INTERMITTENT HEAT THERAPY TO SHOULDER FOR COMFORT WELL LIDOCAINE PATCH. URINARY CATHETER PATENT, YELLOW URINE VISIBLE IN COLLECTION BAG. PT RESTS IN ROOM WITH CALL LIGHT IN REACH. WILL CONTINUE TO MONITOR.
[2019-06-16 21:30] VITALS: BP 125/62
[2019-06-17 05:08] LABS: ABSOLUTE EOSINOPHILS 0.2 thou/uL (0.0-0.7); ABSOLUTE LYMPHOCYTES 1.8 thou/uL (0.8-5.3); ABSOLUTE MONOCYTES 0.6 thou/uL (0.0-1.2); ABSOLUTE NEUTROPHILS 6.4 thou/uL (1.6-8.1); BASOPHILS 0.5 %; EOSINOPHILS 2.5 %; HEMATOCRIT 28.5 % (37.0-47.0); LYMPHOCYTES 19.8 %; MCH 23.2 pg (26.0-34.0); MCHC 31.6 g/dL (28.0-37.0); MCV 73.4 fL (80.0-100.0); MONOCYTES 6.6 %; MPV 7.8 fl. (7.2-11.1); NUCLEATED RBCS 0 /100WBC; PLATELET COUNT* 294 thou/uL (150-400); POLYS 70.6 %; RBC 3.89 mil/uL (4.20-5.00); RDW-CV 20.6 % (10.5-14.5); WBC 9.1 thou/uL (4.0-11.0)
[2019-06-17 05:55] LABS: PLATELET ESTIMATE ADEQUATE
[2019-06-17 05:56] LABS: ANISOCYTOSIS 1+; HYPOCHROMASIA 1+; MICROCYTES 1+; POIKILOCYTOSIS 1+; POLYCHROMASIA 1+
--- NOTE | 2019-06-17 06:27 | NUR ---
PT UP IN CHAIR AT START OF SHIFT. DEPENDENT LIFT USING CHANG TO TRANSFER PT BACK INTO BED, UNABLE TO STAND FOR WEIGHT. PT ON LOW AIR LOSS DELL BED, TURNED AND REPOSITIONED Q2 HOURS AND PRN SHE REQUESTED AND ALLOWED, FOR COMFORT. REFUSING PRAFO BOOTS OVERNIGHT, USING PILLOWS TO ELEVATE HEELS OFF OF BED. DRESSING TO L FOOT AND BUTTOCKS/THIGHS CHANGED OVERNIGHT. INTERDRY REPLACED TO PANNUS. PT RECEIVING FENTANYL X2 THIS SHIFT FOR CO PAIN WITH FAIR RESULT. MALDONADO DRAINING GOOD AMOUNT YELLOW URINE. ISRAEL PICC SL, ABX GIVEN ORDERED, AM LABS DRAWN. K PAD TO R SHOULDER. CM WORKING ON DISCHARGE PLACEMENT. REMAINS ON CONTACT ISOLATION. ABLE TO USE CALL LITE AND MAKE NEEDS KNOWN.
[2019-06-17 08:00] VITALS: BP 108/64
[2019-06-17 12:36] VITALS: BP 125/69
--- NOTE | 2019-06-17 15:19 | NUR ---
TOSHIA followed up with Jessica from [facility] who stated that they will continue to consider pt for admissions to their inpt rehab pending end date to iv abx and insurance auth. TOSHIA faxed requested updates to Jessica and then called Jessica who said that they are willing to accept now that IV abx complete; just pending insurance auth now that Jessica submitted for auth at around 2:30 pm today. TOSHIA to continue to follow to assist with finalizing safe dc plan/inpt rehab placement.
[2019-06-17 20:00] VITALS: BP 134/70
[2019-06-18 04:00] VITALS: BP 134/76
[2019-06-18 04:26] LABS: CALCIUM 8.7 mg/dL (8.5-10.1); CREATININE 0.6 mg/dL (0.6-1.3); POTASSIUM 4.1 mmol/L (3.5-5.1)
[2019-06-18 05:25] LABS: ABSOLUTE BASOPHILS 0.1 thou/uL (0.0-0.2); ABSOLUTE EOSINOPHILS 0.3 thou/uL (0.0-0.7); ABSOLUTE LYMPHOCYTES 1.8 thou/uL (0.8-5.3); ABSOLUTE MONOCYTES 0.7 thou/uL (0.0-1.2); ABSOLUTE NEUTROPHILS 5.2 thou/uL (1.6-8.1); BASOPHILS 0.9 %; EOSINOPHILS 3.2 %; HEMATOCRIT 30.5 % (37.0-47.0); HEMOGLOBIN 9.4 gm/dL (12.0-15.0); LYMPHOCYTES 22.4 %; MCH 22.8 pg (26.0-34.0); MCHC 30.8 g/dL (28.0-37.0); MONOCYTES 8.3 %; MPV 8.2 fl. (7.2-11.1); NUCLEATED RBCS 0 /100WBC; PLATELET COUNT* 296 thou/uL (150-400); POLYS 65.2 %; RBC 4.12 mil/uL (4.20-5.00); WBC 7.9 thou/uL (4.0-11.0)
--- NOTE | 2019-06-18 05:40 | NUR ---
PT ALERT AND ORIENTED. VSS ON 2L NC. MEDS GIVEN PER EMAR. PT SLEPT MOST OF SHIFT. ISOLATION PRECAUTION IN PLACE. PAIN MEDS GIVNE THIS SHIFT. DRESSING TO LT ISCHIAL TUBEROSITY CHANGED THIS SHIFT. PT ON BARIATRIC BED. HEELS OFFLOADED. CALL LIGHT WITHIN REACH. HOURLY ROUNDINGS MADE. WILL CONTINUE TO MONITOR.
[2019-06-18 06:15] LABS: PLATELET ESTIMATE ADEQUATE
[2019-06-18 06:16] LABS: ANISOCYTOSIS 1+; HYPOCHROMASIA 1+; MICROCYTES Occasional; POIKILOCYTOSIS 1+; POLYCHROMASIA 1+
[2019-06-18 08:00] VITALS: BP 126/65
--- NOTE | 2019-06-18 10:09 | NUR ---
SW followed up with [facility] this morning to check on status of insurance auth; they have not received notification from pt insurance as of yet. SW to continue to follow to assist with finalizing dc plan/inpt rehab placement.
[2019-06-18 16:00] VITALS: BP 132/68
--- NOTE | 2019-06-18 17:05 | NUR ---
PT SITTING IN CHAIR THIS AFTERNOON UP WITH CHANG. WHEN PT IS IN BED SHE TURNS BACK ON TO BACK. ENCOURAGED PT TO LIE ON HER SIDE TO PROMOTE WOUND HEALING. PT INCONTINENT OF STOOL. MALDONADO CATH DRAINING CLEAR YELLOW URINE. PT TOLERATING PO. PICC LINE D/C TODAY. PAIN WELL CONTROLLED. WOUND CARE PERFORMED. AWAITING INSURANCE AUTH FOR REHAB.
--- NOTE | 2019-06-19 06:17 | NUR ---
PT ALERT AND ORIENTED. VSS ON 2L. PT SLEPT WELL THIS SHIFT. PAIN MED GIVEN X1 THIS SHIFT. BM NOTED THIS SHIFT. Q2 TURN. INCONTIMENT OF BOWEL. ISOLATION IN PLACE. PT DENIES N/V THIS SHIFT. 1850ML EMPTIED OUT OF MALDONADO THIS SHIFT AM. CALL LIGHT WITHIN REACH. HOURLY ROUNDINGS MADE. WILL CONTINUE TO MONITOR.
[2019-06-19 08:00] VITALS: BP 132/70
[2019-06-19] MEDS ORDERED: DIFLUCAN100 MG PO (11:08)
[2019-06-19] MEDS ORDERED: ZYVOX600 MG PO (11:13)
--- NOTE | 2019-06-19 12:40 | NUR ---
SW received call from Chelsea at [facility] providing final acceptance and stating pt insurance provided authorization. Transportation by [employer] van arranged for 1400. Pt nurse and Dr Carla pang. Chart copied for continuation of care. Final dc orders to be faxed to [facility]. fax [phone]
[2019-06-19 13:32] VITALS: BP 145/99
[2019-06-19] MEDS ORDERED: BENGAY GREASELE57 GM TOP (13:41)
[2019-06-19] MEDS ORDERED: DULCOLAX STOOL100 M1 PO (13:42)
[2019-06-19] MEDS ORDERED: CARVEDILOL3.125 MG PO (13:42)
[2019-06-19] MEDS ORDERED: ULTRAM50 MG PO (13:43)
--- NOTE | 2019-06-19 14:47 | NUR ---
PT A&OX4 VSS. PT REMAINS ON CARB CONTROL DIET. PT WORKED WITH THERAPY THIS AM. PT UP TO RECLINER THIS AFTERNOON. PT RESTED IN ROOM WITH CALL LIGHT IN REACH. PT INCONTINENT OF BOWELS X1 THIS SHIFT. STOOL WAS FORMED. PT ACUCHECK AC/HS. PICC LINE DC'D PRIOR TO THIS NURSE'S SHIFT, NO IV ACCESS ON THIS PT AT THIS TIME. PT TOLERATES PO MEDS W/O COMPLAINT. DRESSING TO L BUTTOCK C/D/I. PT TO DC WITH MALDONADO IN PLACE. MALDONADO REMAINS PATENT, LG AMT OF YELLOW URINE VISIBLE IN COLLECTION BAG. PT O2 SAT 97% ON 2L BY AL. REPORT TO MARK AT [facility]. PAPERWORK ACCOMPANIES PT WITH TRANSPORTERS. PT LEAVES UNIT ON STRETCHER, WITH ALL PERSONAL BELONGINGS.
== END 2019-06-19 14:45 | DRG 854 ==
LOC: M.ERS 11:55 → M.2W 14:25 → M.3W 14:25 → M.TBA-ER 14:25 → M.2W 16:48 → M.3W 06-11 19:15
PROVIDERS: Family Medicine; Internal Medicine; Nurse Practitioner Family; Specialist; Surgery; ADMIT Internal Medicine
PROC: 02HV33Z Insertion of Infusion Device into Superior Vena Cava, Percutaneous Approach (ICD-10-PCS; principal; 2019-06-04)
PROC: B548ZZA Ultrasonography of Superior Vena Cava, Guidance (ICD-10-PCS; principal; 2019-06-04)
PROC: 0JBC0ZZ Excision of Pelvic Region Subcutaneous Tissue and Fascia, Open Approach (ICD-10-PCS; 2019-06-13)
DX: A41.02 Sepsis due to Methicillin resistant Staphylococcus aureus (principal); N17.9 Acute kidney failure, unspecified; B37.89 Other sites of candidiasis; L03.116 Cellulitis of left lower limb; L03.115 Cellulitis of right lower limb; E44.0 Moderate protein-calorie malnutrition; M62.82 Rhabdomyolysis; N39.0 Urinary tract infection, site not specified; E11.52 Type 2 diabetes mellitus with diabetic peripheral angiopathy with gangrene; I96 Gangrene, not elsewhere classified; Z68.44 Body mass index [BMI] 60.0-69.9, adult; A41.01 Sepsis due to Methicillin susceptible Staphylococcus aureus; R65.20 Severe sepsis without septic shock; F17.210 Nicotine dependence, cigarettes, uncomplicated; E66.01 Morbid (severe) obesity due to excess calories; L89.629 Pressure ulcer of left heel, unspecified stage; I87.2 Venous insufficiency (chronic) (peripheral); D35.00 Benign neoplasm of unspecified adrenal gland; L89.619 Pressure ulcer of right heel, unspecified stage; B96.89 Other specified bacterial agents as the cause of diseases classified elsewhere; K14.0 Glossitis; Z88.6 Allergy status to analgesic agent; Z79.899 Other long term (current) drug therapy

== ENCOUNTER → 2019-08-22 | Outpatient (CLI) | payer BC ==
[~2019-08-22] MED LIST: BENGAY GREASELE57 GM TOP; CARVEDILOL3.125 MG PO; CEFTRIAXON1 GM/50 M1 IVPB; DIFLUCAN100 MG PO; DIPHENHYDRAMINE25 M3 PO; DULCOLAX STOOL100 M1 PO; GLUCOPHAGE500 MG PO; HYDROCHLOROTH12.5 M2 PO; IBUPROFEN 600600 M1 PO; LIDOCAINE1 EACH TRANSDERM; MIRALAX17 G1 PO; NEURONTIN300 MG PO; PROTONIX40 M2 PO; TYLENOL325 MG PO; ULTRAM50 MG PO; VANCO 1 GR1 GM/250 M IVPB; VENELEX OINTMEN60 GM TOP; VICKS SINEX15 M1 NASAL; ZYVOX600 MG PO
== END ==
LOC: M.WC 08-21 10:00
DX: E11.621 Type 2 diabetes mellitus with foot ulcer (principal); L89.623 Pressure ulcer of left heel, stage 3; L97.422 Non-pressure chronic ulcer of left heel and midfoot with fat layer exposed; L89.323 Pressure ulcer of left buttock, stage 3; L98.412 Non-pressure chronic ulcer of buttock with fat layer exposed; E11.40 Type 2 diabetes mellitus with diabetic neuropathy, unspecified; E66.01 Morbid (severe) obesity due to excess calories; G47.00 Insomnia, unspecified; I10 Essential (primary) hypertension; K21.9 Gastro-esophageal reflux disease without esophagitis; F32.9 Major depressive disorder, single episode, unspecified; Z68.43 Body mass index [BMI] 50.0-59.9, adult; Z87.891 Personal history of nicotine dependence

== ENCOUNTER → 2019-09-04 | Outpatient (CLI) | payer BC | LOC: M.WC 02:24 | DX: E11.621 Type 2 diabetes mellitus with foot ulcer (principal); L89.623 Pressure ulcer of left heel, stage 3; L97.421 Non-pressure chronic ulcer of left heel and midfoot limited to breakdown of skin; E11.622 Type 2 diabetes mellitus with other skin ulcer; L89.323 Pressure ulcer of left buttock, stage 3; L98.412 Non-pressure chronic ulcer of buttock with fat layer exposed; E11.40 Type 2 diabetes mellitus with diabetic neuropathy, unspecified; E66.01 Morbid (severe) obesity due to excess calories; G47.00 Insomnia, unspecified; I10 Essential (primary) hypertension; K21.9 Gastro-esophageal reflux disease without esophagitis; F32.9 Major depressive disorder, single episode, unspecified; Z87.891 Personal history of nicotine dependence ==

== ENCOUNTER → 2019-09-18 | Outpatient (CLI) | payer BC | LOC: M.WC 06:02 | DX: E11.621 Type 2 diabetes mellitus with foot ulcer (principal); L97.422 Non-pressure chronic ulcer of left heel and midfoot with fat layer exposed; L89.623 Pressure ulcer of left heel, stage 3; E11.622 Type 2 diabetes mellitus with other skin ulcer; L89.323 Pressure ulcer of left buttock, stage 3; L98.412 Non-pressure chronic ulcer of buttock with fat layer exposed; E11.40 Type 2 diabetes mellitus with diabetic neuropathy, unspecified; E66.01 Morbid (severe) obesity due to excess calories; G47.00 Insomnia, unspecified; I10 Essential (primary) hypertension; K21.9 Gastro-esophageal reflux disease without esophagitis; F32.9 Major depressive disorder, single episode, unspecified; Z68.43 Body mass index [BMI] 50.0-59.9, adult ==

== ENCOUNTER → 2019-10-02 | Outpatient (CLI) | payer BC | LOC: M.WC 02:43 | DX: E11.621 Type 2 diabetes mellitus with foot ulcer (principal); L89.623 Pressure ulcer of left heel, stage 3; L97.422 Non-pressure chronic ulcer of left heel and midfoot with fat layer exposed; E11.622 Type 2 diabetes mellitus with other skin ulcer; L89.323 Pressure ulcer of left buttock, stage 3; L98.412 Non-pressure chronic ulcer of buttock with fat layer exposed; E11.40 Type 2 diabetes mellitus with diabetic neuropathy, unspecified; E66.01 Morbid (severe) obesity due to excess calories; G47.00 Insomnia, unspecified; I10 Essential (primary) hypertension; K21.9 Gastro-esophageal reflux disease without esophagitis; F32.9 Major depressive disorder, single episode, unspecified; Z87.891 Personal history of nicotine dependence; Z68.43 Body mass index [BMI] 50.0-59.9, adult ==

== ENCOUNTER → 2019-10-23 | Outpatient (CLI) | payer BC ==
[2019-10-23 11:59] LABS: CALCIUM 8.4 mg/dL (8.5-10.1); POTASSIUM 4.1 mmol/L (3.5-5.1)
== END ==
LOC: M.WC 05:10
PROVIDERS: Family Medicine
DX: E11.621 Type 2 diabetes mellitus with foot ulcer (principal); L89.623 Pressure ulcer of left heel, stage 3; L97.422 Non-pressure chronic ulcer of left heel and midfoot with fat layer exposed; E11.622 Type 2 diabetes mellitus with other skin ulcer; L89.323 Pressure ulcer of left buttock, stage 3; L98.411 Non-pressure chronic ulcer of buttock limited to breakdown of skin; E11.40 Type 2 diabetes mellitus with diabetic neuropathy, unspecified; E66.01 Morbid (severe) obesity due to excess calories; G47.00 Insomnia, unspecified; I10 Essential (primary) hypertension; K21.9 Gastro-esophageal reflux disease without esophagitis; F32.9 Major depressive disorder, single episode, unspecified; Z87.891 Personal history of nicotine dependence; Z68.43 Body mass index [BMI] 50.0-59.9, adult

== ENCOUNTER 2019-10-30 09:53 | Inpatient (IN) | payer BC ==
[2019-10-29 20:00] VITALS: BP 100/52
[~2019-10-30] VITALS: Ht 162.6 cm; Wt 153.3 kg
[2019-10-30 10:00] VITALS: BP 135/48
[2019-10-30] MEDS ORDERED: NORVASC5 M1 PO (10:25)
[2019-10-30] MEDS ORDERED: WELLBUTRIN XL150 MG PO (10:28)
[2019-10-30] MEDS ORDERED: COZAAR 50 MG TA50 M1 PO (10:28)
[2019-10-30] MEDS ORDERED: ROXICODONE5 MG PO (10:30)
[2019-10-30] MEDS ORDERED: HYDROCHLOROTHIA25 M2 PO (10:31)
[2019-10-30 10:41] LABS: HEMATOCRIT 31.4 % (37.0-47.0); HEMOGLOBIN 9.9 gm/dL (12.0-15.0); MCH 23.4 pg (26.0-34.0); MCHC 31.5 g/dL (28.0-37.0); MCV 74.4 fL (80.0-100.0); MPV 7.9 fl. (7.2-11.1); NUCLEATED RBCS 0 /100WBC; PLATELET COUNT* 307 thou/uL (150-400); RBC 4.22 mil/uL (4.20-5.00); RDW-CV 18.8 % (10.5-14.5); WBC 36.8 thou/uL (4.0-11.0)
[2019-10-30 10:53] LABS: APTT 33.4 Seconds (25.0-31.3); INR 1.1; PROTIME 11.4 Seconds (9.20-11.50)
[2019-10-30 10:54] LABS: CALCIUM 8.9 mg/dL (8.5-10.1); CREATININE 1.7 mg/dL (0.6-1.3); POTASSIUM 4.6 mmol/L (3.5-5.1)
[2019-10-30 11:05] LABS: ALBUMIN 2.9 g/dL (3.4-5.0); TOTAL BILIRUBIN 0.5 mg/dL (<0.1-1.0); TOTAL PROTEIN 8.1 g/dL (6.4-8.2)
[2019-10-30 11:06] LABS: ABSOLUTE LYMPHOCYTES 2.2 thou/uL (0.8-5.3); ABSOLUTE MONOCYTES 0.4 thou/uL (0.0-1.2); ABSOLUTE NEUTROPHILS 34.2 thou/uL (1.6-8.1); PLATELET ESTIMATE ADEQUATE
--- NOTE | 2019-10-30 11:59 | NUR ---
PT KATIA TAYLOR [phone] UPDATED ON PTS CONDITION.
[2019-10-30 12:19] LABS: BE -1.8 mmol/L (-2 to +3); PCO2 43.7 mmHg (35.0-45.0); PO2 107.5 mmHg (75.0-100.0); pH 7.353 (7.340-7.450)
[2019-10-30 12:33] LABS: URINE BILIRUBIN NEGATIVE (Negative); URINE BLOOD 2+ (Negative); URINE CLARITY CLEAR; URINE COLOR YELLOW; URINE GLUCOSE-RANDOM NEGATIVE (Negative); URINE KETONES NEGATIVE (Negative); URINE LEUKOCYTES-REFLEX NEGATIVE (Negative); URINE NITRITE-REFLEX NEGATIVE (Negative); URINE PROTEIN 1+ (Negative); URINE SPECIFIC GRAVITY 1.015 (1.005-1.030); URINE UROBILINOGEN 0.2 E.U./dl (0.2-1.0)
[2019-10-30 12:40] LABS: BACTERIA-REFLEX 1-9 Few /HPF (None Seen); CASTS None Seen /LPF (None Seen); CRYSTALS None Seen /LPF (None Seen); MUCUS 4-6 Moderate strn/LPF (None Seen); SQUAMOUS 4-10 Moderate /LPF (0-3); URINE RBC 3-10 Few /HPF (0-2); URINE WBC-REFLEX 0-5 Rare /HPF (0-5)
[2019-10-30 12:53] LABS: URINE POTASSIUM-RANDOM 93.7 mmol/L
[2019-10-30 13:32] VITALS: BP 109/41
--- NOTE | 2019-10-30 13:33 | EKG ---
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 : 1960 Requested By: Eyad Prado Order Number: [id number] MD: Mainor Kenny Measurements Intervals [place] Rate: 108 P: 0 [place]: 47 QRS: -64 QRSD: 116 T: QT: 323 QTc: 433 Interpretive Statements Sinus tachycardia Incomplete right bundle branch block Inferior infarct, old artifact noted Compared to ECG 06/15/2019 00:55:22 Atrial premature complex(es) no longer present Electronically Signed On 10-30-2019 13:31:49 CDT by Mainor Kenny [email or web address] <ELECTRONICALLY SIGNED> By: Mainor Kenny MD, [facility] 10/30/19 1331 1019 1019 Mainor Kenny MD, [facility] /EPI
[2019-10-30 14:00] VITALS: BP 112/49
--- NOTE | 2019-10-30 14:42 | NUR ---
RESPIRATORY ASSESSMENT WAS COMPLETE AT 1020, ERROR IN TIMETHAT IT WAS CHARTED
--- NOTE | 2019-10-30 14:48 | NUR ---
AT 1200, ASSESSED HER WOUND ON COCCYX AREA; HAS A WOUND VAC IN PLACE BUT THE SEAL IS BROKEN AROUND THE WOUND AND WOUND VAC IS NOT PROPERLY WORKING. NOTIFIED DR CARRASQUILLO ABOUT WOUND AND WOUND VAC NOT WORKING. WOUND STAGE 2 WITH YELLOW DRAINAGE NOTED. PT'T LEONARDO AREA IS RED BUT SKIN IS INTACT WITH YEAST PRESENT UNDERNEATH PANNUS
--- NOTE | 2019-10-30 15:06 | NUR ---
CALLED TO ER TO PLACE PICC FOR PT IN NEED OF MULTIPLE ANTIBIOTIC WITH RESP FAILURE AND POSS COVID 19. SPOKE WITH REVIEW OF RISK AND BENEFITS COMPLETED. PT VOICED UNDERSTANDING AND AGREED. CONSENT OBTAINED. TRIPLE LUMAN POWER PICC PLACED TO RIGHT UPPER CEPHALIC. USING ULTRASOUND, MODIFIED SELDINGER TECHNIQUE INCLUDING MAX BARRIR PRECAUTIONS. GOOD BRISK BLOOD RETURN WITH ASPERATION AND EASY FLUSH. TOLERATED WELL. UNABLE TO USE SHERLOCK 3CG RELATED TO EQUIPMENT. CHEST X-RAY OBTAINED AND PER RADIOLOGIST LINE IS APROX. 5CM DEEP. PRIMARY NURSE RETRACTED LINE 4CM UNDER MY DIRECTION LIMITING ISOLATION CONTACT/PRECAUTIONS. NO NEW X-RAY REUQIRED AT THIS TIME. LINE RELEASED FOR USE.
--- NOTE | 2019-10-30 16:08 | NUR ---
WOUND NURSE: PATIENT SEEN FOR INITIAL ASSESSMENT IN ACUTE SETTING TO ADDRESS LEFT HIP STAGE 4 PRESSURE INJURY THAT HAD SUBSEQUENTLY BEEN TREATED IN [facility]. TODAY THE WOUND MEASURESW 2.5 X 7.5 X 9.0 CM AND GOES TO BONE. WOUND PRESENTS WITH SLIMY PINK DRAINAGE IN LARGE AMOUNTS, PERIWOUND REDNESS AND MACERATION. TENDER TO TOUCH. PATIETN WAS PREVIOUSLY USING WOUND VAC, BUT DRESSING IS NOT INTACT. CLEANSED WITH SOAP AND WATER, RINSED, PATTED DRY. APPLIED PHYTOPLEX AF MOISTURE BARRIER TO EXCORIATED AND MACERATED TISSUE. LIGHTLY PACKED WOUND TO IT'S DEPTH USING AQUACEL AG, COVERED WITH ADDITIONAL AQUACEL AG UNDER ABD'S, THEN SECURED WITH TAPE. LEFT HEEL STAGE 3 PRESSURE INJURY MEASURES 2.5 X 2.5 X 1.0 CM AND CONTAINS PINK GRANULATION TISSUE WITH MODERATE AMOUNT OF SEROUSANGUINOUS DRAINAGE. PATIENT NEEDS LOW AIRLOSS BARIATRIC MATTRESS AND NURSINGG SUPERVISOR CELL OPERATION TO OBTAIN THIS FOR PATIENT. LEFT HEEL WOUND WAS CLEANSED WITH SOAP AND WATER, RINSED, THEN PATTED DRY. APPLIED AQUACEL AG UNDER ABD, THEN WRAPPED WITH KERLEX ROLL GAUZE AND SECURED WITH TAPE. HEELS PLACED OFF MATTRESS USING PILLOWS. PATIENT IS NOT TEACHEABLE AT THIS TIME.
[2019-10-30 20:00] VITALS: BP 100/52
[2019-10-31] VITALS: BP 96/56
[2019-10-31 02:29] LABS: INFLUENZA A ANTIGEN Negative (Negative); INFLUENZA B ANTIGEN Negative (Negative)
[2019-10-31 04:00] VITALS: BP 107/52
--- NOTE | 2019-10-31 07:10 | NUR ---
CHANGE OF SHIFT, BEDSIDE REPORT GIVEN PATIENT SEEN AT BEDSIDE, IN BED RESTING ASSUMMED PATIENT CARE
[2019-10-31 08:00] VITALS: BP 88/50
--- NOTE | 2019-10-31 08:19 | NUR ---
ASSUMED PATIENT CARE AT 1900. ASSESSMENT COMPLETED CHARTED. PATIENT IS NSR ON THE MONITOR. HOURLY ROUNDING IN PLACE FOR PATIENT SAFETY. DURING SHIFT PATIENT REPORTED CHEST PAIN DURING INSPIRATION. EKG PERFORMED, SEE CHART FOR DETAILS. PATIENT DECLINED PRN PAIN MEDS. DURING SHIFT PATIENT ACCIDENTALLY DETACHED ONE OF THE PORTS FROM HER PICC LINE AND BLEEDING CAUSED IT TO CLOT OFF. THIS NURSE WAS CONCERNED THAT SHE HAD ALSO POTENTIALLY DISLODGED HER PICC LINE. FLUIDS PAUSED, PHYSICIAN WAS NOTIFIED, NEW ORDERS RECEIVED, SEE PATIENT CHART FOR DETAILS. AWAITING CATH BRISEYDA, REPORT GIVEN TO DAY-SHIFT NURSE. CLWR.
[2019-10-31 08:47] LABS: HEMOGLOBIN 9.3 gm/dL (12.0-15.0); MCH 24.1 pg (26.0-34.0); MCHC 32.1 g/dL (28.0-37.0); MPV 7.6 fl. (7.2-11.1); RBC 3.87 mil/uL (4.20-5.00); RDW-CV 18.5 % (10.5-14.5); WBC 29.1 thou/uL (4.0-11.0)
[2019-10-31 09:05] LABS: ALBUMIN 2.5 g/dL (3.4-5.0); CALCIUM 8.1 mg/dL (8.5-10.1); CREATININE 1.4 mg/dL (0.6-1.3); MAGNESIUM 2.1 mg/dL (1.8-2.4); POTASSIUM 4.4 mmol/L (3.5-5.1); TOTAL BILIRUBIN 0.4 mg/dL (<0.1-1.0); TOTAL PROTEIN 7.3 g/dL (6.4-8.2)
--- NOTE | 2019-10-31 10:57 | EKG ---
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 : 1960 Requested By: Kathie Heredia Order Number: [id number] Reading MD: Mainor Kenny Measurements Intervals [place] Rate: 92 P: 55 ME: 156 QRS: 70 QRSD: 96 T: 33 QT: 361 QTc: 447 Interpretive Statements Sinus rhythm incomplete RBBB Probable left atrial enlargement Baseline wander in lead(s) V6 Compared to ECG 10/30/2019 10:19:40 Sinus tachycardia no longer present Electronically Signed On 10-31-2019 10:55:59 CDT by Mainor Kenny [email or web address] <ELECTRONICALLY SIGNED> By: Mainor Kenny MD, [facility] 10/31/19 1055 Mainor Kenny MD, [facility] /EPI
[2019-10-31 12:00] VITALS: BP 109/65
--- NOTE | 2019-10-31 13:40 | NUR ---
SW called pt room and spoke with pt to complete initial assessment. Pt talkative. Pt explains that she has been at home after dc from [facility] in rehab facility. Pt current with [facility] and goes to wound clinic every other . HH nurse visited pt 3 times a week. Pt says she lives in apt with her dtr who provides needed assistance and her still works outside the home the majority of the time but comes home every once in a while to give pt dtr a break from caregiving. pt has RW and cam boot due to drop foot. Pt says she ambulates but slowly and still thinks she should look for wc for outside the home. Pt insurance does not have benefits for LTAC or SNF. SW discussed dc plan for home with dtr and HH to resume care. Pt thought she would stay a couple weeks bc of iv abx but SW explained that would most likely not need to be the case and if needed, IV abx could be arranged for home and pt expressed understanding. SW to continue to follow to assist with safe dc planning.
[2019-10-31 16:00] VITALS: BP 101/60
[2019-10-31 20:00] VITALS: BP 113/56
[2019-11-01] VITALS (7 sets, daily range): BP systolic 100–120; BP diastolic 45–65
[2019-11-01 05:24] LABS: HEMATOCRIT 28.1 % (37.0-47.0); HEMOGLOBIN 8.9 gm/dL (12.0-15.0); MCH 23.6 pg (26.0-34.0); MCHC 31.6 g/dL (28.0-37.0); MCV 74.8 fL (80.0-100.0); MPV 7.6 fl. (7.2-11.1); RBC 3.75 mil/uL (4.20-5.00); RDW-CV 18.2 % (10.5-14.5)
[2019-11-01 05:45] LABS: CALCIUM 7.9 mg/dL (8.5-10.1); CREATININE 1.1 mg/dL (0.6-1.3); MAGNESIUM 2.2 mg/dL (1.8-2.4); POTASSIUM 4.4 mmol/L (3.5-5.1)
--- NOTE | 2019-11-01 07:52 | NUR ---
ASSUMED PATIENT CARE AT 1900. ASSESSMENT COMPLETED CHARTED. PATIENT IS NSR ON THE MONITOR. HOURLY ROUNDING IN PLACE FOR PATIENT SAFETY. CLWR.
--- NOTE | 2019-11-01 18:10 | NUR ---
ASSUMED PT CARE AT 0700, PT A&O X4, VSS, REMAINS ON 3LPM VIA NC, ENCOURAGED TO GET OUT OF BED AND SIT IN RECLINER, PT REFUSED. MED SURG STATUS, LS DIMINISHED THROUGHOUT. MALDONADO PATENT AND DRAINING DARK YELLOW URINE, WOUND DRESSINGS CHANGED, CLEAN, DRY, AND INTACT. 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
[2019-11-02 05:23] LABS: CREATININE 0.9 mg/dL (0.6-1.3); MAGNESIUM 1.9 mg/dL (1.8-2.4); POTASSIUM 4.7 mmol/L (3.5-5.1)
--- NOTE | 2019-11-02 07:33 | NUR ---
PT IS ABLE TO COMMUNCATE HER NEEDS TO STAFF EFFECTIVELY. CURRENT PAIN MEDICATION REGIMEN HAS BEEN ADEQUATE FOR CONTROLLING HER PAIN UP TO THIS TIME. PT'S HEELS ELEVATED OFF BED DURING THE NIGHT. DRESSINGS TO WOUNDS INTACT AND REINFORCED WHERE NEEDED. MALDONADO PATENT UP TO THIS TIME; GOOD OUTPUT. CONTACT ISOLATION FOR MRSA MAINTAINED. PICC LINE PATENT.
[2019-11-02 08:00] VITALS: BP 112/64
[2019-11-02 18:34] VITALS: BP 118/61
--- NOTE | 2019-11-02 18:38 | NUR ---
ASSUMED PT CARE AT 0700, VSS, REMAINS ON 2.5LPM VIA NC, TITRATED DOWN FROM 3LPM, REMAINS MED/SURG STATUS. MALDONADO REMOVED PER DR ORDERS, PT EDUCATED ON IMPORTANCE OF REMOVAL, STATES UNDERSTANDING AND ABLE TO VOID WITH NO DIFFICULTIES POST CATH. TRIPLE LUMEN PICC PATENT, DRESSING CLEAN, DRY, AND INTACT, HOURLY ROUNDING COMPLETED.
[2019-11-02 20:00] VITALS: BP 125/96
[2019-11-03] VITALS: BP 143/71
--- NOTE | 2019-11-03 07:36 | CON ---
[address] [address] CONSULTATION Name: CLAUDIAAUGUSTIN M Room: [address] IN M.R.#: [id number] Admission: 10/30/19 Attend Phys: Thor Hong MD Discharge: Date of : 62 Report #: [id number] THIS REPORT FOR: //name// cc: Pepe Kimbrough Russell J. DO ~ THIS REPORT FOR: //name// CC: Thor Kimbrough DATE OF SERVICE: 10/31/2019 INFECTIOUS DISEASE CONSULTATION ATTENDING PHYSICIAN: Thor Hong MD REASON FOR EVALUATION: Gram-positive cocci, septicemia. HISTORY OF PRESENT ILLNESS: Chart reviewed, the patient examined. This is a 59-year-old known to myself, who had actually been hospitalized in 05/2019, was diagnosed with Staphylococcus aureus septicemia, also had wounds with polymicrobial growth including Enterococcus faecalis and MRSA. [facility], has multiple ulcers involving her left lower extremity, perhaps most problematic involving the proximal aspect noted that had worsened over the course of recent days to weeks, increasing inflammation. She was evaluated and underwent a culture in mid August which showed no growth. Had undergone an MRI evaluation earlier this week. Had presented with onset of fevers, which were high-grade as well as encephalopathy. Upon evaluation, blood cultures were collected 1 out of 2 with growth of gram-positive cocci, has a skin and soft tissue infection cultures as well that are in progress. Chest x-ray did show some diffuse bilateral interstitial infiltrates. A CT abdomen and pelvis shows some pelvic adenopathy. Had a marked elevation of her white count of 36,800. Urinalysis was otherwise unremarkable. Coronavirus PCR was negative. She was initiated on empiric therapy with vancomycin as well as levofloxacin and ceftriaxone. ALLERGIES: LISTED TO CODEINE. CURRENT MEDICATIONS: Include vancomycin, levofloxacin, gabapentin, pantoprazole, bupropion, ceftriaxone, p.r.n. analgesics and antiemetics. PAST MEDICAL HISTORY: Diabetes mellitus type 2, history of anxiety, lower extremity lymphedema, chronic decubitus ulcers of the left ischial site, left adrenal adenoma and morbid obesity. SOCIAL HISTORY: She smokes last 40 years. No ethanol. [place] [address] CONSULTATION Name: TONY TAYLOROSMIN Landry Room: [address]#: [id number] Admission: 10/30/19 Attend Phys: Thor Hong MD Discharge: Date of : 62 Report #: [id number] FAMILY HISTORY: Noncontributory. REVIEW OF SYSTEMS: Denies any significant gastrointestinal-related complaints. She is on supplemental oxygen, although not normally, so she is generally lucid. PHYSICAL EXAMINATION: GENERAL: She is alert, cooperative, appropriate. She is in xony-lw-jdydmlxa distress. She is morbidly obese. VITAL SIGNS: T-max 103.2 yesterday, more recently 97.9, pulse 93, respirations 22, blood pressure is 88/50 and saturation 98%. SKIN: Warm, dry, no rashes. HEENT: Normocephalic. Extraocular muscles intact. NECK: Supple. LUNGS: Few scattered coarse breath sounds. HEART: Regular. Borderline tachycardic. I do not appreciate murmur. ABDOMEN: Obese, soft, nontender. Left ischial site has moderate inflammatory changes. No apparent odor. There is some drainage from the site. EXTREMITIES: Distal lower extremity has a dressing in place. AND RECTAL: Deferred. LABORATORY DATA: Lactic acid initially 1.9, repeat this morning was 1.0. Electrolytes this morning; sodium 135, potassium 4.4, chloride 101, bicarbonate is 29, anion gap of 5, BUN and creatinine of 45 and 1.4, and glucose of 157. LFTs unremarkable. Albumin of 285, total protein 7.3, estimated GFR of 39. CBC: White count of 29.1, hemoglobin and hematocrit of 9.3 and 29.0, platelets of 249. Blood culture 1 out of 2 with Gram-positive cocci. Admission coronavirus PCR was negative. Influenza antigen was negative. Venous Doppler of lower extremities showed no evidence of DVT. Chest x-ray with bilateral interstitial infiltrates. Urinalysis, 0-5 white cells. ABGs: pH of 7.353, pCO2 of 43.7 and pO2 of 107.5 on 10 liters. ASSESSMENT AND PLAN: Gram-positive cocci isolated on blood culture, the patient with recent history of Staphylococcus aureus septicemia. We will await results of the both. I would suspect most likely source in this setting would be the wound. She noted she had an MRI, we will try to track down those results. Continue empiric therapy. I think we can back off a little bit, certainly can exclude pneumonitis as well. At this point, she is not overtly toxic. We will [address] [address] CONSULTATION Name: AUGUSTIN TAYLOR Room: [address] IN ..#: [id number] Admission: 10/30/19 Attend Phys: Thor Hong MD Discharge: Date of : 62 Report #: [id number] continue current approach including wound care. Monitor expectantly, certainly at risk for additional complications. <ELECTRONICALLY SIGNED> By: Neil Almanza MD 11/03/19 0736 [id number] Almanza MD /nt
[2019-11-03 07:40] VITALS: BP 134/71
[2019-11-03 08:35] VITALS: BP 143/71
--- NOTE | 2019-11-03 08:54 | NUR ---
DC orders written, CM faxed referral to [facility] to check IVABX coverage. Picc in place. Awaiting call with cost of IVABX. CM to fax resumption orders to [facility].
[2019-11-03 13:20] VITALS: BP 143/71
[2019-11-03 14:20] VITALS: BP 143/71
--- NOTE | 2019-11-03 14:21 | NUR ---
PT HOME HEALTH SET UP. IV ABX SET UP. LEFT WITH PICC IN PLACE. PT GIVEN DISCHARGE INFORMATION. PT BELONGINGS GATHERED. FALL RISK PRECAUTIONS IN PLACE. HOURLY ROUNDING COMPLETED. ISOLATION MAINTAINED. PT LEFT VIA WHEELCHAIR WITH NURSING STAFF TO HOME.
--- NOTE | 2019-11-03 14:48 | NUR ---
Pt discharged to home today. IVABX covered at 100%. [facility] to contact Pt/dtr for delivery of meds to home, and to arrange teach. Faxed HH orders to [facility] and updated them on need for IVABX.
== END 2019-11-03 14:23 | disposition home health service (06) | DRG 871 ==
LOC: M.ERS 09:53 → M.TBA-ER 11:31 → M.2W 13:50
PROVIDERS: Family Medicine; ADMIT Internal Medicine
PROC: 02HV33Z Insertion of Infusion Device into Superior Vena Cava, Percutaneous Approach (ICD-10-PCS; principal; 2019-10-30)
DX: A40.0 Sepsis due to streptococcus, group A (principal); N17.0 Acute kidney failure with tubular necrosis; J18.9 Pneumonia, unspecified organism; G92 Toxic encephalopathy; J96.01 Acute respiratory failure with hypoxia; R65.21 Severe sepsis with septic shock; L97.929 Non-pressure chronic ulcer of unspecified part of left lower leg with unspecified severity; E46 Unspecified protein-calorie malnutrition; L03.116 Cellulitis of left lower limb; E87.1 Hypo-osmolality and hyponatremia; Z68.43 Body mass index [BMI] 50.0-59.9, adult; I10 Essential (primary) hypertension; E66.01 Morbid (severe) obesity due to excess calories; I87.8 Other specified disorders of veins; Z20.828 Contact with and (suspected) exposure to other viral communicable diseases; E86.0 Dehydration; K80.20 Calculus of gallbladder without cholecystitis without obstruction; F17.210 Nicotine dependence, cigarettes, uncomplicated; E87.8 Other disorders of electrolyte and fluid balance, not elsewhere classified; E11.51 Type 2 diabetes mellitus with diabetic peripheral angiopathy without gangrene; E55.9 Vitamin D deficiency, unspecified; R59.1 Generalized enlarged lymph nodes; F41.9 Anxiety disorder, unspecified; E11.65 Type 2 diabetes mellitus with hyperglycemia; Z79.84 Long term (current) use of oral hypoglycemic drugs; Z88.5 Allergy status to narcotic agent; Z79.4 Long term (current) use of insulin

== ENCOUNTER → 2019-11-13 | Outpatient (CLI) | payer BC ==
[~2019-11-13] MED LIST changes: +COZAAR 50 MG TA50 M1 PO; +HYDROCHLOROTHIA25 M2 PO; +NORVASC5 M1 PO; +ROXICODONE5 MG PO; +WELLBUTRIN XL150 MG PO
== END ==
LOC: M.WC 01:47
DX: E11.621 Type 2 diabetes mellitus with foot ulcer (principal); L89.623 Pressure ulcer of left heel, stage 3; L97.422 Non-pressure chronic ulcer of left heel and midfoot with fat layer exposed; E11.622 Type 2 diabetes mellitus with other skin ulcer; L89.323 Pressure ulcer of left buttock, stage 3; L98.412 Non-pressure chronic ulcer of buttock with fat layer exposed; E11.40 Type 2 diabetes mellitus with diabetic neuropathy, unspecified; I10 Essential (primary) hypertension; K21.9 Gastro-esophageal reflux disease without esophagitis; G47.00 Insomnia, unspecified; E66.01 Morbid (severe) obesity due to excess calories; F32.9 Major depressive disorder, single episode, unspecified; Z68.43 Body mass index [BMI] 50.0-59.9, adult; Z87.891 Personal history of nicotine dependence; Z79.84 Long term (current) use of oral hypoglycemic drugs

== ENCOUNTER 2019-12-14 12:53 | Inpatient (IN) | payer BC ==
[~2019-12-14] VITALS: Ht 162.6 cm; Wt 161.5 kg
[2019-12-14 12:58] VITALS: BP 117/68
[2019-12-14 13:41] LABS: HEMATOCRIT 28.6 % (37.0-47.0); HEMOGLOBIN 8.9 gm/dL (12.0-15.0); MCH 22.2 pg (26.0-34.0); MCHC 31.3 g/dL (28.0-37.0); MPV 7.1 fl. (7.2-11.1); NUCLEATED RBCS 0 /100WBC; PLATELET COUNT* 319 thou/uL (150-400); RBC 4.02 mil/uL (4.20-5.00); RDW-CV 19.4 % (10.5-14.5)
[2019-12-14 13:50] LABS: CALCIUM 8.3 mg/dL (8.5-10.1); CREATININE 1.2 mg/dL (0.6-1.3)
[2019-12-14 13:55] LABS: ALBUMIN 2.4 g/dL (3.4-5.0); TOTAL BILIRUBIN 0.3 mg/dL (<0.1-1.0); TOTAL PROTEIN 8.8 g/dL (6.4-8.2)
[2019-12-14 14:06] LABS: ABSOLUTE EOSINOPHILS 0.3 thou/uL (0.0-0.7); ABSOLUTE LYMPHOCYTES 1.1 thou/uL (0.8-5.3); ABSOLUTE MONOCYTES 0.4 thou/uL (0.0-1.2); ABSOLUTE NEUTROPHILS 12.2 thou/uL (1.6-8.1); ANISOCYTOSIS 3+; HYPOCHROMASIA 2+; PLATELET ESTIMATE ADEQUATE; POIKILOCYTOSIS 1+; POLYCHROMASIA 1+
[2019-12-14 14:26] LABS: APTT 28.7 Seconds (25.0-31.3); INR 1.1; PROTIME 10.9 Seconds (9.20-11.50)
[2019-12-14 14:27] LABS: URINE BILIRUBIN NEGATIVE (Negative); URINE BLOOD NEGATIVE (Negative); URINE CLARITY CLEAR; URINE COLOR YELLOW; URINE GLUCOSE-RANDOM NEGATIVE (Negative); URINE KETONES NEGATIVE (Negative); URINE LEUKOCYTES-REFLEX NEGATIVE (Negative); URINE NITRITE-REFLEX NEGATIVE (Negative); URINE PROTEIN NEGATIVE (Negative); URINE UROBILINOGEN 0.2 E.U./dl (0.2-1.0)
--- NOTE | 2019-12-14 15:43 | NUR ---
PUREWICK APPLIED TO PATIENT AND CONNECTED TO SUCTION AT THIS TIME.
[2019-12-14 16:15] VITALS: BP 128/72
[2019-12-14 18:43] VITALS: BP 130/80
--- NOTE | 2019-12-14 19:35 | NUR ---
PATIENT ARRIVED TO UNIT AT APPROX 1633. ALERT AND ORIENTED X4. ADMISSION HISTORU AND ASSESSMENT COMPLETED AND CHARTED. VSS ON ROOM AIR. PATIENT HAD A SPASM IN HER RIGHT LED JUST AFTER ADMISSION, I TRIED TO STRETCH AND MASSAGE HER LEG TO EASE HER PAIN SHE WAS CRYING OUT. DR VIRK WAS PAGED AND ORDERED FLEXERIL AND NORCO, BOTH GIVEN AND PAIN SUBSIDED. WOUNDS NOTED TO PATIENTS BOTTOM AND LEFT ANKLE. CELLULITIS NOTED TO PATIENTS LEFT LOWER EXTREMITY. PHOTOS TAKEN AND PLACED IN CHART. PUREWICK IN PLACE AND DRAINING TO SUCTION. FALL PRECAUTIONS IN PLACE. CALL LIGHT WITHIN REACH. HOURLY ROUNDS COMPLETED. WILL CONTINUE WITH PLAN OF CARE.
[2019-12-14 21:29] VITALS: BP 130/59
--- NOTE | 2019-12-15 05:22 | NUR ---
PATIENT IS MAX ASSIST. ATTEMPTED TO PLACE PUREWICK SEVERAL TIMES. IT DOES HAVE SUCTION ON AND WORKING THIS AM. 2 BED CHANGES DUE TO INCONTINENCE. WOUND CARE CONSULTED, PICTURES IN CHART. WOUNDS ARE ON LEFT ANKLE AND UPPER LEFT BUTTOCKS. THE LEFT LOWER EXTREMETY IS WHEEPING PURULENT FLUID AND EDEMOUS AND RED. SHE DID NOT REPORT ANY PAIN THIS MORNING. VANCOMYCIN STARTED AROUND 0445. PHARMACY ADVISED TO RUN 2 BAGS FOR STARTING DOSE OF 2 GRAMS. SHE HAS A VANC TROUGH AT 1200 TODAY. PLAN IS TO CONSULT WITH PODIATRY AND WOUND CARE. WILL CONTINUE TO MONITOR.
[2019-12-15 07:50] LABS: ABSOLUTE EOSINOPHILS 0.2 thou/uL (0.0-0.7); ABSOLUTE LYMPHOCYTES 1.3 thou/uL (0.8-5.3); ABSOLUTE MONOCYTES 0.7 thou/uL (0.0-1.2); ABSOLUTE NEUTROPHILS 8.4 thou/uL (1.6-8.1); BASOPHILS 0.3 %; EOSINOPHILS 1.8 %; HEMATOCRIT 29.5 % (37.0-47.0); HEMOGLOBIN 9.3 gm/dL (12.0-15.0); LYMPHOCYTES 12.3 %; MCH 22.2 pg (26.0-34.0); MCHC 31.4 g/dL (28.0-37.0); MCV 70.8 fL (80.0-100.0); MONOCYTES 6.8 %; NUCLEATED RBCS 0 /100WBC; PLATELET COUNT* 294 thou/uL (150-400); POLYS 78.8 %; RBC 4.17 mil/uL (4.20-5.00); RDW-CV 19.3 % (10.5-14.5); WBC 10.7 thou/uL (4.0-11.0)
[2019-12-15 07:58] LABS: CALCIUM 8.6 mg/dL (8.5-10.1); CREATININE 0.9 mg/dL (0.6-1.3); POTASSIUM 4.1 mmol/L (3.5-5.1)
--- NOTE | 2019-12-15 10:50 | NUR ---
WOUND NURSE: PATIENT SEEN TODAY TO ADDRESS LEFT BUTTOCK WOUND AND LEFT LATERAL MALLEOLAR WOUND. LEFT BUTTOCK WOUND PRESENTS A NARROW DEEP TUNNEL, NEAR THE ISCHIUM AND MEASURING 1.0 X 1.0 X 9.2 CM. PALE PINK GRANULATION TISSUE IS IN THE WOUND BED, UNABLE TO PALPATE BONE USING COTTON TIPPED APPLICATOR. THERE IS A MODERATE AMOUNT OF SEROUSANGUINOUS DRAINAGE NOTED. THE PERIWOUND TISSUE PRESENTS WITH RED, MACULAR RASH. CLEANSED WITH SOAP AND WATER, RINSED WITH WATER, THEN PATTED DRY. IRRIGATED THE WOUND BED WITH NORMAL SALINE SYRINGE. PACKED LIGHTLY WITH SILVERMED GEL MOISTENED PLAIN PACKING RIBBON, THEN COVERED WITH ABD AND SECURED WITH PAPER TAPE. ALSO APPLIED MOISTURE BARRIER TO THE PERIWOUND TISSUE. THIS WAS TOLERATED WELL BY THE PATIENT. THIS WOUND WAS PREVIOUSLY STAGED 3 WHEN PATIENT SEEN AT [facility]. NEW WOUND PRESENT ON THE LEFT LATERAL MALLOLUS MEASURING 2.3 X 4.5 X 0.1 CM. CONTAINS LIGHT YELLOW ESCHAR, SM AMOUNT OF YELLOW DRAINAGE PRESENT ON OLD PAD UNDERNEATH WOUND. THE PERIWOUND AREA IS REDDENED, EDEMATOUS, AND WARM TO TOUCH. THIS WAS CLEANSED WITH SOAP AND WATER, RINSED WITH WATER, THEN PATTED DRY. APPLIED AQUACEL AG UNDER ABD TO WOUND BED. USED MOISTURE BARRIER TO INTACT PERIWOUND SKIN. WRAPPED WITH KERLEX ROLL GAUZE UNDER TOMAS WRAP. THIS WAS TOLERATED WELL BY THE PATIENT. PATIENT ADMITTING SHE LACKS ADEQUATE CARE AT HOME, SOMETIMES HOME BY HERSELF AND LEFT IN URINE AND FECES PER Bryce POLLARD RN -- REPORTED BY THE [facility] NURSE CARING FOR PATIENT. PATIENT ALSO HAS MISSED [facility] APPT DUE TO MOBILITY DEFICIT AND 13 STEPS TO LEAVE HOME. DISCUSSED WITH PATIENT THE POSSIBILITY SHE NEEDS MORE CARE THAN CAN BE DELIVERED AT HOME AT THIS TIME. PATIENT RELUCTANTLY RECEPTIVE TO DISCUSSING WITH AUDIT DIRECTOR PERTAINING TO AVAILABLE COMMUNITY RESOURCES. PATIENT INSTRUCTED ON OFFLOADING BOTH WOUNDS AND PROTEIN DENSE DIET WITH GOOD BGL CONTROL TO PROMOTE HEALING. FOLLOW UP INSTRUCTION WILL BE NECESSARY DESPITE PATIENT IS ALERT AND ORIENTED.
--- NOTE | 2019-12-15 13:03 | NUR ---
PATIENT HAS BEEN ON THE PHONE WITH HER UPDATING HIM FREQUENTLY. I ASK HER IF SHE WANTED ME TO ANSWER ANY QUESTIONS FOR HIM AND SHE STATED NO.
--- NOTE | 2019-12-15 14:02 | NUR ---
Pt out of room for US of legs when SW went to visit with pt for initial assessment. Pt known to SW from previous hospitalization. 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 Pt has history of inpt rehab at [facility]. Hx HH with [facility] and current needs for wound care OP but was unable to get to appts easily due to obesity and pt dtr unable to continue to provide for pt needs according to wound care nurse Raúl. pt has hx of iv abx with [facility]. Pt insurance does not have any benefits for SNF or ltach so this will be a dc/placement barrier. SW to refer to [employer] to determine if pt could be eligible for Medicaid although pt has previously stated that her makes too much money for her to qualify for Medicaid. Pt has RWjasmin. SW to follow to discuss LTC options if pt/family ability to determine finances towards LTC or more in home care as needed. Pt is 59 and would also require bariatric equipment which are 2 more dc barriers for placement.
[2019-12-15 17:05] VITALS: BP 121/65
--- NOTE | 2019-12-15 17:20 | NUR ---
PATIENT HAS A PRESSURE WOUND ON THE LEFT BUTTOCK AND HEEL. WOUND CARE CAME TODAY AND PLACED NEW DRESSINGS ON THEM. SHE IS ON IV ANTIBIOTICS AND HER LEFT LEG IS VERY EDEMATOUS AND RED. HER LEFT ANKLE IS DISLOCATED AND IT IS NOT KNOW HOW THIS HAPPENED OR WHEN. I DID HAVE TO REPLACE HER IV IN THE LEFT FOREARM BECAUSE THE OTHER ONE WAS RED AND SORE. IT IS SL AT THIS TIME. SHE HAD 2 EXTRA LARGE BOWEL MOVEMENTS TODAY AND I DID HAVE TO PLACE A MALDONADO CATH BECAUSE SHE WAS VOIDING SO MUCH AND WAS INCONT. OF URINE AND THE PACKING IN THE LEFT BUTTOCK WOUND WAS STAYING SATURATED. FALL PRECAUTIONS ARE MAINTAINED PATIENT IS VERY OBESE AND DOES NOT TRY TO GET UP WITHOUT HELP. SHE HAS RESTED WELL THIS AFTERNOON AND IS JUST WAITING FOR HER SUPPER AT THIS TIME.
[2019-12-15 20:00] VITALS: BP 114/54
--- NOTE | 2019-12-16 05:33 | NUR ---
ASSUMED PT CARE AT APPROX 1930. PT IS AWAKE AND ORIENTED X4. ASSESSMENT DONE AND CHARTED. PT C/O OF LEFT LEG PAIN RELIEVED BY PAIN MEDICATION GIVEN PER SEP. PT REFUSED SOME TURNS,EDUCATION GIVEN AND PT AGREED TO TURN TO SIDES. NO ACUTE CHANGES OVERNIGHT. CALL LIGHT WITHIN REACH. HOURLY ROUNDING DONE FOR PT SAFETY. HIGH FALL PRECAUTIONS IN PLACE.
--- NOTE | 2019-12-16 07:55 | CON ---
[address] [address] CONSULTATION Name: CLAUDIAAUGUSTIN M Room: [address] IN M.R.#: [id number] Admission: 12/14/19 Attend Phys: Danny Pinon MD Discharge: Date of : 62 Report #: [id number] THIS REPORT FOR: //name// cc: Pepe Kimbrough Russell J. DO ~ THIS REPORT FOR: //name// CC: Danny Kimbrough DATE OF SERVICE: 12/15/2019 INFECTIOUS DISEASE CONSULTATION ATTENDING PHYSICIAN: Danny Pinon MD REASON FOR EVALUATION: Evaluation of possible deep seated infection involving her left ankle, foot. The patient has recent history of at least 2 hospitalizations for infectious-related complications, decubitus ulcers. HISTORY OF PRESENT ILLNESS: Chart for patient examined. This is a 59-year-old known to myself with extensive medical history including diabetes mellitus type 2, morbid obesity, who is really essentially nonambulatory I saw in latter part of October. At that point, had noted infected wounds involving her left heel with growth of group A strep. She was discharged around 11/02, treated with parenteral therapy with ceftriaxone. She was unable to make her followup appointments either to myself or the [facility] and more recently has had issues with the home health and noted worsening changes involving her left ankle. There is a question of Charcot. Due to concerns, she was reevaluated in the Emergency Room. Imaging raised question of possible septic arthritis. She had a borderline elevated lactic acid of 2.0. Blood cultures were collected and are sterile thus far. Orthopedic Surgery evaluation is pending, empirically started on therapy with vancomycin as well as ceftriaxone. She is generally lucid. Denies significant pulmonary or gastrointestinal related complaints. She has been afebrile. ALLERGIES: LISTED TO CODEINE. CURRENT MEDICINES: Include hydrochlorothiazide, losartan, bupropion, amlodipine, metformin, furosemide, pantoprazole, vancomycin, enoxaparin, gabapentin, hydrocodone. PAST MEDICAL HISTORY: Diabetes mellitus type 2, anxiety, morbid obesity, venous stasis insufficiency of lower extremities, lymphedema, longstanding left [place]chial [place] [address] CONSULTATION Name: AUGUSTIN TAYLOR Room: [address]#: [id number] Admission: 12/14/19 Attend Phys: Danny Pinon MD Discharge: Date of : 62 Report #: [id number] SOCIAL HISTORY: Former smoker. No ethanol. No illicit drug use. FAMILY HISTORY: Noncontributory. REVIEW OF SYSTEMS: Otherwise, unremarkable 10-point review of systems. PHYSICAL EXAMINATION: GENERAL: Sjco-dt-ryxoaaxc distress. She is lucid, appears somewhat ill, morbidly obese, likely undernourished. VITAL SIGNS: Temperature 97.7, pulse 89, respirations 16, blood pressure 125/58. SKIN: Warm, dry, no rashes. HEENT: Normocephalic. Extraocular muscles intact. NECK: Supple. She is lying in left lateral decubitus position. LUNGS: Diminished breath sounds. HEART: Regular. I do not appreciate a murmur. ABDOMEN: Large pannus that is hanging to the left side. There is no apparent tenderness. EXTREMITIES: There is a left ischial decubitus ulcer, probes roughly 9 cm. Moderate amount of surface inflammation. The opening itself is quite small. Per the wound care nurse, we just rasped the ankle wound and notes a significant amount of slough at the base. She has got bogginess. There is a moderate degree of inflammation. There are photographs available in the chart. LABORATORY AND X-RAY DATA: Blood cultures sterile thus far. Prealbumin of 14.6. Electrolytes: Sodium 138, potassium 4.1, chloride 102, bicarbonate is 33, anion gap of 3, BUN and creatinine 20 and 0.9, estimated GFR 64. CBC: White count of 10.7, H and H 9.3 and 29.5, platelets of 294. Glucose has been as well controlled. Lactic acid 2.0. Urinalysis unremarkable. Ankle imaging as noted above. Albumin of 2.4, total protein 8.8. Estimated LFTs unremarkable. ASSESSMENT AND PLAN: Left ankle deep seated infection. We will need diagnostic evaluation and that will be attempted aspiration. We will await Orthopedic Surgery recommendations. Continue empiric antimicrobial therapy. In addition to the vancomycin, we will add cefepime. Continue wound care as prescribed. She is certainly at risk for other infectious complications. We will add incentive spirometry. Monitor expectantly. <ELECTRONICALLY SIGNED> By: Neil Almanza MD 12/16/19 0755 [id number] Almanza MD /nt
[2019-12-16 08:00] VITALS: BP 103/64
[2019-12-16 08:39] LABS: ABSOLUTE EOSINOPHILS 0.3 thou/uL (0.0-0.7); ABSOLUTE LYMPHOCYTES 1.2 thou/uL (0.8-5.3); ABSOLUTE MONOCYTES 0.6 thou/uL (0.0-1.2); ABSOLUTE NEUTROPHILS 7.4 thou/uL (1.6-8.1); BASOPHILS 0.5 %; EOSINOPHILS 3.2 %; HEMATOCRIT 28.2 % (37.0-47.0); HEMOGLOBIN 9.1 gm/dL (12.0-15.0); LYMPHOCYTES 12.8 %; MCH 22.5 pg (26.0-34.0); MCHC 32.2 g/dL (28.0-37.0); MCV 69.8 fL (80.0-100.0); MONOCYTES 6.6 %; MPV 6.8 fl. (7.2-11.1); NUCLEATED RBCS 0 /100WBC; PLATELET COUNT* 312 thou/uL (150-400); POLYS 76.9 %; RBC 4.04 mil/uL (4.20-5.00); RDW-CV 19.3 % (10.5-14.5); WBC 9.7 thou/uL (4.0-11.0)
[2019-12-16 08:46] LABS: CREATININE 0.9 mg/dL (0.6-1.3); POTASSIUM 4.1 mmol/L (3.5-5.1)
[2019-12-16 09:19] LABS: MICROCYTES 1+; PLATELET ESTIMATE ADEQUATE; POLYCHROMASIA 1+
--- NOTE | 2019-12-16 13:15 | NUR ---
CALLED PHARMACY AND REPORTED THE VANC TROUGH RESULT OF 23. I WAS TOLD NOT TO GIVE THE 1230 DOSE AT THIS TIME. THEY ARE LOOKING INTO THE DOSAGE.
[2019-12-16 16:00] VITALS: BP 114/90
--- NOTE | 2019-12-16 16:55 | NUR ---
SW met with pt to follow up on dc planning and resources. Pt open to any possibility but wants LTC to be a last resort. Pt is willing to have SW send referrals to check on dc options. SW provided information on applying for disability; pt thinks she might not qualify because of not really having worked 5 of the last 10 years and that is a requirement. pt hopeful for an AFO that may help her ankle? pt realistic about transportation issue and the need for more care at home than what she has available. SW to continue to follow.
--- NOTE | 2019-12-16 17:41 | NUR ---
PATIENT HAS BEEN ON BEDREST ALL DAY BUT SHE HAS BEEN TURNED AND REPOSITIONED EVERY 2 HOURS. HER HEELS HAVE BEEN OFFLOADED WITH THE USE OF PILLOWS TODAY. ALL MEDICATIONS HAVE BEEN ADMINISTERED AND HER WOUND CARE WAS DONE ORDERED. SHE IS ALERT AND ORIENTED X 4. SHE HAS BEEN TALKING TO HER THROUGHOUT THE DAY TO UPDATE HIM ON HER CONDITION. NO C/O PAIN TODAY. SHE IS CURRENTLY EATING SUPPER. CALL LIGHT IN EASY REACH SIDE RAILS UP X 2 BED IN THE LOW POSITION. SHE IS A FALL RISK AND FALL PRECAUTIONS HAVE BEEN MAINTAINED. MALDONADO CARE WAS PREFORMED ORDERED. LARGE OUTPUT FROM THE MALDONADO TODAY.
[2019-12-16 20:00] VITALS: BP 97/47
[2019-12-17 06:20] VITALS: BP 102/46
--- NOTE | 2019-12-17 06:59 | NUR ---
PT ALERT AND ORIENTED. BEDREST. Q2 TURN. MEDS GIVEN PER EMAR. PAIN MED GIVEN X1 THIS SHIFT. WOUND DRESSINGS C/D/I. FALL PRECAUTION IN PLACE. MALDONADO FOR VOIDING. WILL CONTINUE TO MONITOR.
[2019-12-17 07:44] VITALS: BP 132/67
--- NOTE | 2019-12-17 13:18 | NUR ---
ORTHO RETURNED MY CALL AND STATED THAT THEY WOULD GET SOMEONE OVER HER TO SEE THE PATIENT. HE SAID THERE IS NOTHING TO DO ACUTELY.
--- NOTE | 2019-12-17 17:11 | NUR ---
PATIENT HAS BEEN WATCHING TV AND SURFING THE WEB ON HER PHONE. WOUND CARE WAS HERE AND ORTHO FOR THE CONSULT. DR DICK WAS HERE AND PREFORMED A DEBRIDEMENT OF THE LEFT LATERAL ANKLE THEN PLACED A DRESSING OVER IT AND ORTHO PLACED A SPLINT ON THE LEG. PATIENT IS GOING TO BE NPO AFTER MIDNIGHT FOR AN CLOSED VS OPEN REDUCTION WITH POSSIBLE PINNING OF THE LEFT ANKLE. XRAY TO THE LEFT ANKLE WAS DONE AND PATIENT WAS TRANSFERRED TO A BARIATRIC BED TODAY ALSO. I MEDICATED HER FOR PAIN AFTER THE PROCEDURE AND SHE IS RESTING AT THIS TIME. DRESSING TO LEFT BUTTOCK WAS DONE ORDERED. NO DISTRESS TODAY.
[2019-12-17 17:26] VITALS: BP 111/58
[2019-12-17 19:40] VITALS: BP 128/73
--- NOTE | 2019-12-18 06:28 | NUR ---
PT ALERT AND ORIENTED. PT SLEPT WELL THIS HSIFT. Q2 TURN. MEDS GIVEN PER EMAR. SPECIAL BED IN PLACE. MALDONADO FOR VOIDING. Q2 TURN. NPO AFTER MIDNIGHT FOR SURGERY TODAY. CONSENT SIGNED AND IN THE CHART, FALL PRECAUTION IN PLACE. CALL LIGHT WITHIN REACH. WILL CONTINUE TO MONITOR.
[2019-12-18 07:26] LABS: ABSOLUTE EOSINOPHILS 0.3 thou/uL (0.0-0.7); ABSOLUTE LYMPHOCYTES 1.7 thou/uL (0.8-5.3); ABSOLUTE MONOCYTES 0.6 thou/uL (0.0-1.2); ABSOLUTE NEUTROPHILS 5.5 thou/uL (1.6-8.1); BASOPHILS 0.4 %; EOSINOPHILS 3.7 %; HEMATOCRIT 29.9 % (37.0-47.0); HEMOGLOBIN 9.4 gm/dL (12.0-15.0); LYMPHOCYTES 20.3 %; MCH 22.2 pg (26.0-34.0); MCHC 31.4 g/dL (28.0-37.0); MCV 70.8 fL (80.0-100.0); MONOCYTES 7.8 %; NUCLEATED RBCS 0 /100WBC; PLATELET COUNT* 339 thou/uL (150-400); POLYS 67.8 %; RBC 4.22 mil/uL (4.20-5.00); RDW-CV 18.8 % (10.5-14.5); WBC 8.1 thou/uL (4.0-11.0)
[2019-12-18 07:30] VITALS: BP 114/67
[2019-12-18 07:36] LABS: CALCIUM 8.2 mg/dL (8.5-10.1); POTASSIUM 3.8 mmol/L (3.5-5.1)
[2019-12-18 08:32] LABS: ANISOCYTOSIS 2+; HYPOCHROMASIA 1+; MICROCYTES 1+; PLATELET ESTIMATE ADEQUATE
[2019-12-18 09:46] VITALS: BP 114/67
--- NOTE | 2019-12-18 10:25 | NUR ---
PT TRANSFERRED TO PRE-OP PER BED. C/O NEW R-FA IV HURTING HER A LOT, AND THERE IS NOTED A SITE OF ERYTHEMA DISTAL/LATERAL TO THE IV SITE INSERTION WHICH IS NOT RED AT ALL. J-LOOP WAS TAPED TIGHT IN THAT AREA, SO LOOSENED AND RE-TAPED AWAY FROM THAT A BIT AND DEMARCATION LINE NOTED WITH [place] FOR FUTURE ASSESSMENT. WARM BLANKET PLACED AROUND SITE. IV FLUSHES VERY WELL, AND DRAWS BACK BLOOD. IT WAS PAINFUL TO FLUSH INITIALLY, BUT MUCH BETTER NOW.
--- NOTE | 2019-12-18 13:14 | NUR ---
Pt to have surgery today. SW faxed initial referral to [facility] with pt permission to check on possibilities as needed at [facility]. SW to continue to follow.
[2019-12-18 14:20] VITALS: BP 106/65
--- NOTE | 2019-12-18 16:00 | NUR ---
PATIENT NPO FOR ORTHO SUGERY THIS AM, PATIENT RETURNED THIS AFTERNOON WITH NO DIFFICULTY NOTED. LEFT LEG DRESSING INTACT. PRN HYDROCODONE GIVEN PER SEP ORDERS. IV RESTARTED BY INFUSION THIS AM, SCHED ABX INFUSED. DR. CAROLS ON FLOOR AND NOTIFIED OF CRITICAL VANC TROUGH, ORDERS FROM PHARMACY WHO DOSES RECEIVED. PATIENT IN CONTACT PRECAUTIONS FOR MRSA.
[2019-12-18 20:15] VITALS: BP 104/53
[2019-12-19 00:48] VITALS: BP 88/39; BP 98/46
[2019-12-19 04:09] VITALS: BP 99/36
[2019-12-19 04:47] LABS: HEMATOCRIT 28.8 % (37.0-47.0); HEMOGLOBIN 8.9 gm/dL (12.0-15.0); MCH 21.8 pg (26.0-34.0); MCHC 30.8 g/dL (28.0-37.0); MCV 70.9 fL (80.0-100.0); MPV 7.2 fl. (7.2-11.1); RBC 4.06 mil/uL (4.20-5.00); RDW-CV 19.1 % (10.5-14.5); WBC 11.5 thou/uL (4.0-11.0)
[2019-12-19 05:00] LABS: CREATININE 1.3 mg/dL (0.6-1.3); MAGNESIUM 2.1 mg/dL (1.8-2.4); POTASSIUM 4.5 mmol/L (3.5-5.1)
--- NOTE | 2019-12-19 06:43 | NUR ---
ASSUMED CARE FROM PREVIOUS SHIFT , PT REFUSING CAPNO AND SAT MONITOR , DR ROBERTSON NOTIFED PT ALERT ORIENTED X4 PT TALKING ON CELLPHONE SAT 94 -96 %. 02 REMAIN AT 6L NC. PT RESTED WELL THROUGHOUT HOURLY ROUNDS. PT ALSO REFUSED TO HAVE DRESSING CHANGED ON BUTTOCK
[2019-12-19 08:00] VITALS: BP 103/61
[2019-12-19 11:48] VITALS: BP 91/44
--- NOTE | 2019-12-19 12:04 | NUR ---
DC plans pending inpt rehab consult and decision on acceptance and insurance auth. SW to continue to follow to assist with safe dc planning.
--- NOTE | 2019-12-19 14:33 | NUR ---
WOUND NURSE: PATIENT SEEN FOR DRESSING CHANGE TO LEFT LATERAL MALLEOLUS AND PLANTAR HEEL POSTOPERATIVE WOUNDS. REMOVED SPLINT AND DRESSING AND CLEANSED WITH WOUND CLEANSER AND GAUZE, APPLIED SMALL AMOUNT OF SKIN PREP TO PERIWOUND TO ANCHOR AQUACEL AG, THEN COVERED WITH ABD, THEN WRAPPED WITH KERLEX ROLL GAUZE UNDER 4 ROLLS OF COTTON CAST PADDING APPLIED TOES TO KNEE. REAPPLIED SPLINT, THEN WRAPPED TOES TO KNEE USING 2 - 6 INCH TOMAS WRAPS. PATIENT STARTED KICKING HER FOOT AFTER SPLINT WAS REMOVED BECAUSE OF DISCOMFORT WHILE ANOTHER NURSE WAS MANAGING HER IV. PATIENT WAS INSTRUCTED NOT TO KICK AND FLAIL HER LEFT LEG WHEN DRESSING IS BEING REPLACED. PATIENT HAS SMALL INCISION ON LATERAL MALLEOLUS AND PLANTAR FOOT WITH INTACT SUTURES IN PLACE AND EDGES WELL APPROXIMATED. THERE IS MINIMAL PERIWOUND REDNESS, WARMTH, OR INDURATION NOTED.
[2019-12-19 16:00] VITALS: BP 105/55
--- NOTE | 2019-12-19 16:47 | NUR ---
LOI FROM WOUND CARE THIS AFTERNOON AND DRESSING CHANGED TO LEFT LEG, PHOTOS TAKEN. DRESSING TO LEFT BUTTOCK CHANGED PER PROTOCOL. PRN HYDROCODONE GIVEN X 1 THIS SHIFT FOR LEFT ANKLE PAIN. LEFT HAND IV NOT FLUSHING THIS AFTERNOON, NEW IV STARTED BY TI IN INFUSION TO RIGHT FOREARM. TURNED Q2. REMAINS IN CONTACT PRECAUTIONS.
[2019-12-19 20:00] VITALS: BP 101/52
[2019-12-20 04:15] LABS: CALCIUM 8.1 mg/dL (8.5-10.1); CREATININE 1.1 mg/dL (0.6-1.3); POTASSIUM 4.2 mmol/L (3.5-5.1)
--- NOTE | 2019-12-20 05:46 | NUR ---
PATIENT SLEPT MOST OF THE NIGHT. IV REMAINS SALINE LOCKED. IV VANC WAS GIVEN ORDERED. DRESSING TO LEFT FOOT REMAINS INTACT. PATIENT WAS GIVEN PAIN MEDICINE ONCE THIS SHIFT. WILL CONTINUE TO MONITOR.
[2019-12-20 08:10] VITALS: BP 125/65
[2019-12-20 16:00] VITALS: BP 103/61
[2019-12-20 23:50] VITALS: BP 136/67
--- NOTE | 2019-12-21 06:26 | NUR ---
PATIENT SLEPT MOST OF THE NIGHT. IV REMAINS SALINE LOCKED. IV VANC WAS GIVEN ORDERED. DRESSING TO LEFT BUTTOCK WAS CHANGED. DRESSING TO LEFT FOOT REMAINS INTACT. PATIENT WAS GIVEN PAIN MEDICINE ONCE THIS SHIFT. WILL CONTINUE TO MONITOR.
[2019-12-21 08:10] VITALS: BP 122/61
--- NOTE | 2019-12-21 17:01 | NUR ---
PATIENT RESTING IN BED. PATIENT HAS COMPLAINTS OF LEFT LEG PAIN, TREATED ADEQUATELY WITH MEDICATION. PATIENT REPOSITIONED WHILE IN BED. PATIENT HAS MALDONADO CATHETER AND USES BEDPAN. PATIENT HAS EXCELLENT APPETITE. PATIEN TIS NWB TO LLE. PATIENT DENIES ANY NEEDS AT THIS TIME. CALL LIGHT WITHIN REACH.
[2019-12-21 21:00] VITALS: BP 115/61
--- NOTE | 2019-12-22 05:48 | NUR ---
PATIENT SLEPT MOST OF THE NIGHT. IV VANC WAS GIVEN ORDERED. PATIENT WAS GIVEN PAIN MEDICINE TWICE THIS SHIFT. MALDONADO REMAINS TO DEPENDENT DRAIN. PATIENT IS POSSIBLY DISCHARGING TO REHAB OR SKILLED FACILTY TODAY OR TOMORROW. WILL CONTINUE TO MONITOR.
[2019-12-22 07:23] VITALS: BP 121/54
[2019-12-22 08:14] LABS: CALCIUM 8.9 mg/dL (8.5-10.1); CREATININE 0.9 mg/dL (0.6-1.3); MAGNESIUM 1.9 mg/dL (1.8-2.4); POTASSIUM 4.2 mmol/L (3.5-5.1)
[2019-12-22] MEDS ORDERED: ELIQUIS2.5 MG PO (08:22)
[2019-12-22] MEDS ORDERED: HYDROCODON-ACE1 EAC7 PO (08:23)
--- NOTE | 2019-12-22 13:34 | NUR ---
RIGHT CEPHALIC VESSEL ACCESSED FOR SINGLE LUMEN POWER PICC. LINE PRE-TRIMMED TO 42CM AND ADVANCED TO THE ZERO NEGRA WITH NO RESISTANCE MET. UPPER ARM CIRCUMFERENCE ABOVE INSERTION SITE = 14 1/2". SHERLOCK AND 3CG CONFIRMATION OF TIP TERMINATION AT THE CAVOATRIAL JUNCTION APPRECIATED. GUIDE WIRE REMOVED, LINE FLUSHED AND INSERTION SITE DRESSED. REPORT GIVEN TO DONNA NICOLE.
--- NOTE | 2019-12-22 16:02 | NUR ---
NO COMPLAINTS OF PAIN THIS SHIFT. TURNED Q2. DRESSING TO LEFT BUTTOCK CHANGED PER ORDERS. MALDONADO CONTINUES DRAINING LARGE AMOUNTS OF CLEAR YELLOW URINE. PICC LINE PLACED TODAY PER ORDERS, RIGHT UPPER ARM. FLUSHING WITHOUT DIFFCULTY AND GOOD BLOOD RETURN NOTED. Q12 VANC RECEIVED. 02 2L NC REMAINS IN PLACE. CONTACT PRECAUTIONS REMAIN. DRESSING TO LEFT LEG C/D/I.
--- NOTE | 2019-12-22 16:02 | NUR ---
SW continuing to follow. Inpt rehab considering pt but SW also sent referral to [facility] inpt rehab as another option if [facility] unable to accept for any reason. SW to check on status of referral and assist with finalizing safe dc plan. pt dc barriers: no benefits for snf or ltac. Will be awaiting inpt rehab decision and then insurance auth.
[2019-12-22 16:30] VITALS: BP 125/69
[2019-12-22 19:30] VITALS: BP 108/49
--- NOTE | 2019-12-23 06:50 | NUR ---
PT ALERT AND ORIENTED. VSS ON 2L. MEDS GIVEN PER EMAR. Q2 TURN. PT WOULD OCCASSIONALLY REFUSE TURNS. ISOLATION PRECAUTION IN PLACE. CALL LIGHT WITHIN REACH. HOURLY ROUNDINGS MADE. WILL CONTINUE TO MONITOR.
[2019-12-23 08:00] VITALS: BP 158/85
--- NOTE | 2019-12-23 10:13 | NUR ---
cm left for Jessica at [facility] to f/u on referral. [phone]. Also, reached out to [facility] to f/u re: inpatient rehab. Waiting to hear back.
--- NOTE | 2019-12-23 14:16 | NUR ---
CM INFORMED BY MARIXA AT [facility] PT WOULD NOT BE ACCEPTED FOR ACUTE REHAB. PT INOFORMED BY CM, PT STATES [facility] HAD ALREADY CALLED TO INFORM HER. PT PROVIDED A LIST OF LTC FACILITES. PT STATES SHE CANNOT AFFORD TO PAY OUT OF POCKET BUT ACCEPTED THE LIST. PT WILLING TO TRY TO COMPLETE MEDICAID SINCERE, SHE HAD BEEN IN THE PROCESS IN THE PAST, BUT DID NOT FOLLOW THRU B/C SHE DIDNT BELIEVE SHE WOULD QUALIFY. TOMAS PITTMANT FANNY MCGRATH [id number] W/ [facility] TO COMPLETE MEDICAID ASSESSMENT/SINCERE W/PT. INPT REHAB TO CONT TO FOLLOW. CM TO CONT TO FOLLOW.
--- NOTE | 2019-12-23 15:52 | NUR ---
WOUND NURSE: PATIENT SEEN FOR FOLLOW UP ASSESSMENT PERTAINING TO LEFT FOOT POSTOPERATIVE LESIONS. LEFT LATERAL ANKLE MEASURES 0.1 X 3.0 X 0.1 CM, CLOSED WITH NO DRAINAGE, SCANT AMOUNT OF DRIED YELLOW DRAINAGE ON OLD DRESSING. NO PERIWOUND REDNESS, WARMTH, OR INDURATION. TWO INTACT BIJAL IN PLACE. PLANTAR FOOT (HEEL) CLOSED NO SUTURES, NO DRAINAGE. DRIED YELLOW DRAINAGE ON OLD DRESSING. NO REDNESS, WARMTH, OR INDURATION NOTED. CLEANSED WITH WOUND CLEANSER AND GAUZE. APPLIED SKIN PREP SPARINGLY TO PERIWOUND. APPLIED AQUACEL AG UNDER ABD, WRAPPED WITH KERLEX ROLL GAUZE UNDER COTTON CAST PADDING. REAPPLIED SPLINT, SECURED SPLINT IN PLACE WITH 2 6 INCH TOMAS WRAPS. PATIENT TOLERATED WELL. REINSTRUCTED TO KEEP IMMOBILIZED AND UP ON PILLOWS. PATIENT STATES SHE UNDERSTANDS.
[2019-12-23 16:00] VITALS: BP 110/61
--- NOTE | 2019-12-23 18:40 | NUR ---
PT A&OX4 VSS. PT EVALUATED FOR REHAB. PT UP TO RECLINER THIS AFTERNOON W/CHANG. PO PAIN MEDS ADMINISTERED PRIOR TO PT WORKING W/ WOUND DRESSING CHANGED BY LOI NICOLE, PHOTOS TO CHART. PT ON 2L 02 BY KANIKA. PT ACCUCHECK IN AM ONLY. PICC TO RUE PATENT, FLUSHES EASILY. MALDONADO CATHETER PATENT, YELLOW URINE VISIBLE IN COLLECTION BAG. PT REMAINS IN ISO R/T MRSA IN WOUNDS. PT IS Q2H TURNS, BUT REFUSES INTERMITTENTLY. PT ABLE TO ASSIST WITH MOVEMENT IN BED. IV ABX CONTINUED. PT DGTR AT BEDSIDE THIS AFTERNOON. PT RESTS IN BED AT THIS TIME W/CALL LIGHT IN REACH. WILL CONTINUE TO MONITOR.
[2019-12-23 20:40] VITALS: BP 110/58
--- NOTE | 2019-12-24 05:49 | NUR ---
PT SLEPT WELL OVERNIGHT. TURNED Q2 HOURS AND PRN FOR COMFORT AND SKIN CARE, PT OCC REFUSING TURNS, ABLE TO READJUST POSITION SOMEWHAT ON HER OWN. REMAINS ON SPECIALTY BED, REFUSING SCD. MALDONADO DRAINING YELLOW URINE. BM PER BEDPAN THIS SHIFT. ISRAEL PICC ABX GIVEN ORDERED. O2 2L NC. LLE DRSG CDI, ELEVATED ON PILLOW. NO LABS THIS MORNING. REMAINS ON CONTACT ISOLATION FOR MRSA WOUND. ABLE TO USE CALL LITE AND MAKE NEEDS KNOWN. CM FOLLOWING FOR DC PLAN.
[2019-12-24 07:35] VITALS: BP 131/75
--- NOTE | 2019-12-24 13:07 | CON ---
[address] [address] CONSULTATION Name: AUGUSTIN TAYLOR Room: [address] IN M.R.#: [id number] Admission: 12/14/19 Attend Phys: Danny Pinon MD Discharge: Date of : 62 Report #: [id number] THIS REPORT FOR: //name// cc: Pepe Kimbrough Russell J. DO ~ THIS REPORT FOR: //name// CC: Danny Kimbrough DATE OF SERVICE: 12/19/2019 Status post percutaneous Steinmann pin across the tibiotalar across the tibiotalar calcaneal joint with reduction of the talus and ankle joint mortise. The bandage to the left ankle was changed today by Raúl, the wound care nurse. Admission swab cultures grew MRSA, additional soft tissue cultures are pending. She is on parenteral vancomycin per ID. She is awaiting fci facility placement. I do not anticipate further surgical debridement of the ankle wound. I will defer to Orthopedics to follow up regarding the wound, at this point to facilitate patient transportation issues. I am happy to follow up with her at [facility] if that is feasible unless Orthopedics wants to follow her for the wound concomitantly with the closed reduction. <ELECTRONICALLY SIGNED> By: Larry Pack DPM 12/24/19 1307 [id number] Pack, JOELLE /joycelyn
--- NOTE | 2019-12-24 13:07 | CON ---
[address] [address] CONSULTATION Name: CLAUDIAAUGUSTIN M Room: [address] IN .R.#: [id number] Admission: 12/14/19 Attend Phys: Danny Pinon MD Discharge: Date of : 62 Report #: [id number] THIS REPORT FOR: //name// cc: Pepe Kimbrough Russell J. DO ~ THIS REPORT FOR: //name// CC: Danny Kimbrough DATE OF SERVICE: 12/17/2019 CHIEF COMPLAINT: Followup of ulceration to the left fibular malleolus with subacute Charcot ankle dislocation. Wound swab culture growing Staphylococcus aureus, she is on parenteral vancomycin and cefepime. She has been afebrile with good appetite, low-grade pain to the area. She is nonambulatory, venous Doppler negative for DVT. LABORATORY DATA: WBC 9.7, RBC 4.04, hemoglobin 9.1, hematocrit 28.2, and platelets 312. BUN 19, creatinine 0.9, and glucose 110. PHYSICAL EXAMINATION: Large ulceration to the left distal fibular malleolus, roughly 2.5 x 3.0 x 0.2 cm. The wound bed has a pale yellow fibrotic bed with no granulation. There is advanced inflammation surrounding the wound extending to the distal lateral ankle. There is no underlying fluctuance or crepitation. The inflammation is localized to the fibular malleolus and adjacent hindfoot and ankle, with relative involvement of the anterior and medial aspect of the ankle joint. She has advanced lymphedema with dislocated tibiotalar joint. The talus is extruded distal medially with a fairly flaccid foot. I reviewed x-rays, which are negative for osteolysis to the talar dome and tibial plafond and lateral fibula. She does have pretty typical findings of a Charcot fracture dislocation with fragmentation of the talus as well as hind and mid foot joints. There is no subcutaneous emphysema or opaque densities within the ankle articulation. IMPRESSION: Soft tissue ulceration, left lateral fibular malleolus with Charcot fracture dislocation of the ankle, and involvement of the hindfoot. Type 2 diabetes mellitus, lymphedema, and morbid obesity. PLAN: I performed an excisional ulcer debridement with #10 blade to excise subcutaneous tissue from the entire wound bed. This tissue was sent for aerobic and anaerobic tissue culture. Bleeding was stopped with pressure and the wound was cleansed and dressed with Aquacel Ag, ABD, Kerlix and the orthopedic resident placed a stirrup ankle splint with the foot in a relatively rectus alignment. X-rays will be taken after splint application. [place] [address] CONSULTATION Name: AUGUSTIN TAYLOR Room: [address] IN M.R.#: [id number] Admission: 12/14/19 Attend Phys: Danny Pinon MD Discharge: Date of : 62 Report #: [id number] standpoint, the patient may benefit from a wound vacuum down the road or continue with topical wound therapy. I will defer to Orthopedics regarding any possible ORIF in the future. <ELECTRONICALLY SIGNED> By: Larry Pack DPM 12/24/19 1307 [id number] Pack DPM /joycelyn
--- NOTE | 2019-12-24 13:07 | CON ---
[address] [address] CONSULTATION Name: CLAUDIAAUGUSTIN M Room: [address] IN ..#: [id number] Admission: 12/14/19 Attend Phys: Danny Pinon MD Discharge: Date of : 62 Report #: [id number] THIS REPORT FOR: //name// cc: Pepe Kimbrough Russell J. DO ~ THIS REPORT FOR: //name// CC: Danny Kimbrough DATE OF SERVICE: 12/17/2019 ADMISSION DIAGNOSES: Left lateral ankle ulcer, Charcot ankle fracture dislocation, cellulitis. HISTORY OF PRESENT ILLNESS: A 59-year-old female admitted with worsening cellulitis to the right lateral ankle with chronic ulceration of the distal fibula. She has morbid obesity with lymphedema and concomitant ischial wounds. She was being treated by Dr. Pepe Kimbrough at [facility], but recently developed a wound to the left lateral fibular malleolus and Charcot arthropathy. She was ambulating in an Aircast boot beginning in 06/2019 with progressive loss of her ability to ambulate. She notes she is waiting for shoes cutback/insoles in a brace from [facility]. She is currently on parenteral vancomycin and cefepime by Dr. Neil Almanza. At this time, she is afebrile with no fevers, chills, nausea, or malaise. She has moderate pain to palpation to the ulceration. X-rays significant for dislocation of the left talus from the tibial plafond with no evidence of septic arthritis or subcutaneous emphysema. Venous Doppler was negative for DVT. Blood cultures are pending x 2. ALLERGIES: CODEINE. MEDICATIONS: Reviewed in H and P. SOCIAL HISTORY: Lives at home in a trailer with her and daughter. She is a former smoker, quit less than 1 year ago. She has been nonambulatory for the last several months and bedbound. PAST MEDICAL HISTORY: Diabetes mellitus type 2, morbid obesity, lymphedema, left adrenal adenoma, left ischial decubitus ulceration, hypovitaminosis D, cholelithiasis. LABORATORY DATA: WBC 10.7, hemoglobin 9.3, hematocrit 29.5, platelets 294. BUN 20, creatinine 0.9, glucose 109. PHYSICAL EXAMINATION: There is a large full-thickness ulceration to the left fibular malleolus that measures roughly 3.0 x 3.0 x 0.2 cm. [place] [address] CONSULTATION Name: AUGUSTIN TAYLOR Room: [address] IN [facility]#: [id number] Admission: 12/14/19 Attend Phys: Danny Pinon MD Discharge: Date of : 62 Report #: [id number] covered with yellow fibrotic tissue with no granulation. There is advanced inflammation to the area indicative of cellulitis with no underlying fluctuance or crepitation. No exposed bone, tendon or joint. I am unable to express any drainage from the ulcer and there is no tunneling or undermining. The left ankle is rather flaccid and unstable due to tibiotalar dislocation. She has advanced lymphedema to both extremities with onychomycosis. Her feet are warm with palpable dorsalis pedis pulses. There is no pallor, cyanosis, or signs of acute vascular embarrassment. IMPRESSION: Chronic ulceration, left lateral fibula with cellulitis, Charcot arthropathy with tibiotalar dislocation, type 2 diabetes mellitus, lymphedema, morbid obesity. PLAN: I performed aerobic and anaerobic swab culture of the wound. I do not favor any surgical open reduction due to the open wound and cellulitis. It is unlikely her talus will be able to be reduced into the ankle mortise given the degree of dislocation and fragmentation of the talus. She may require tibiotalar calcaneal arthrodesis with intramedullary robyn once the infection subsides. I do not favor any septic arthritis at this point based on the clinical and radiographic findings. I do not recommend ankle joint aspiration, although I will debride the left lateral ankle wound at next visit and see if the wound communicates to the ankle joint or if there is any underlying purulence. I discussed with Raúl wound nurse. The wound was cleansed and dressed with Aquacel Ag, ABDs, Kerlix and Reggie bandage. The patient to remain nonweightbearing to the extremity at present. <ELECTRONICALLY SIGNED> By: Larry Pack DPM 12/24/19 1307 [id number] Pack DPM /joycelyn
--- NOTE | 2019-12-24 15:20 | NUR ---
[facility] inpt rehab might reconsider for acceptance but will be pending acceptance and insurance auth. Again, pt does not have benefits for SNF or Ltac so pt would be pending a LTC placement if pt not able to dc home yet with family care. Pt received list of LTCs yesterday and [facility] to assess pt for possible Medicaid pending. SW to continue to follow to assist with safe dc planning.
--- NOTE | 2019-12-24 19:45 | NUR ---
PT A&OX4 VSS. PT IS ACCUCHECK IN AM ONLY, METFORMIN ADMINISTERED ORDERED. O2 DC'D W/RT PT WAS ABLE TO MAINTAIN ADEQUATE SATS ON ROOM AIR. PICC TO RUE PATENT, SALINE LOCKED. DRESSING C/D/I. PT REMAINS CONTINENT OF B/B AND REQUESTS BEDPAN NEEDED. CASE MANAGEMENT CONTINUES TO WORK ON PLACEMENT/DC PLAN FOR THIS PT. PT IS CHANG FOR TRANSFERS. PT HAS MALDONADO CARTHETER, YELLOW URINE VISIBLE IN COLLECTION BAG. PT RESTS IN BED WITH CALL LIGHT IN REACH. WILL CONTINUE TO MONITOR.
[2019-12-24 21:23] VITALS: BP 151/81
--- NOTE | 2019-12-25 08:10 | NUR ---
PATIENT SLEPT MOST OF THE NIGHT. IV VANC WAS GIVEN ORDERED. PATIENT WAS GIVEN PAIN MEDICINE ONCE THIS SHIFT. DRESSING TO LEFT BUTTOCK WAS CHANGED THIS SHIFT AND REMAINS INTACT. WILL CONTINUE TO MONITOR.
[2019-12-25 08:20] VITALS: BP 158/101
--- NOTE | 2019-12-25 16:06 | NUR ---
WOUND NURSE: PLANNED TO SEE PATIENT TO ASSESS BUTTOCK WOUND, BUT PATIENT SITTING IN UP IN WHEELCHAIR. AGREED TO COME BACK TOMORROW FOR WOUND ASSESSMENT.
--- NOTE | 2019-12-25 16:26 | OP ---
[address] [address] OPERATIVE REPORT Name: CLAUDIAAUGUSTIN Room: [address] IN [facility]#: [id number] Admission: 12/14/19 Attend Phys: Danny Pinon MD Discharge: Date of : 62 Report #: [id number] THIS REPORT FOR: //name// cc: Pepe Kimbrough Russell J. DO ~ THIS REPORT FOR: //name// CC: Danny Kimbrough DICTATED BY: Jim Norman DO PREOPERATIVE DIAGNOSES: 1. Left tibiotalar and subtalar joint dislocation. 2. Left Charcot foot arthropathy. POSTOPERATIVE DIAGNOSES: 1. Left tibiotalar and subtalar joint dislocation. 2. Left Charcot foot arthropathy. PROCEDURE: 1. Closed reduction and percutaneous pinning of the left tibiotalar and subtalar joints. 2. Irrigation and debridement and closure of chronic left lateral ankle wound. 3. Physician directed fluoroscopy less than 1 hour. SURGEON: Ezequiel Case DO ASSISTANTS: Jim Norman DO and Thor Hodge DO ANESTHESIA TYPE: General. ESTIMATED BLOOD LOSS: Minimal. SPECIMENS REMOVED: None. COMPLICATIONS: None. CONDITION: Stable to PACU. ANTIBIOTICS: Scheduled cefepime. INDICATION FOR PROCEDURE: The patient is a 59-year-old female with multiple comorbidities including diabetes, neuropathy, and Charcot arthropathy. She was found to have a dislocated tibiotalar and subtalar joint on x-rays including findings consistent with Charcot arthropathy. She has been nonambulatory for the last couple of months. Prior to then, [place] [address] OPERATIVE REPORT Name: AUGUSTIN TAYLOR Room: [address] IN [facility]#: [id number] Admission: 12/14/19 Attend Phys: Danny Pinon MD Discharge: Date of : 62 Report #: [id number] of her ankle and developed a chronic wound. We discussed a closed reduction and percutaneous pinning to stabilize the ankle and allow her wound to heal. The risks, benefits, alternatives and possible complications including but not limited to DVT, PE, infection, need for repeat surgery, possible need for amputation in the future, pin site irritation, rhabdomyolysis and possible anesthesia complications were reviewed. She voices understanding and agreeable to proceed. DESCRIPTION OF PROCEDURE: The patient was met in the preoperative area. The correct site was marked. She was transferred to the operative suite and placed supine on the operative table. She was given the benefit of general anesthesia. A well-padded tourniquet was applied to the left upper leg, but was not used for the case. The leg was then prepped and draped in the normal sterile fashion. A timeout was performed to identify the correct patient, procedure and operative site. All in the room were in agreement. She is on scheduled antibiotics. We began by using fluoroscopy to identify our starting point for the Steinmann pins. We performed a reduction maneuver to improve the alignment of the tibiotalar and subtalar joints. We then advanced the 3.2 mm Steinmann pin starting from the plantar aspect of the calcaneus percutaneously. We then advanced this into the talus. We then used the pin to manipulate the joints to improve alignment and advanced this into the tibia. Appropriate reduction and placement of the pin was confirmed on fluoroscopy. A second 3.2 mm Steinmann pin was then placed more medially. We took final pictures to confirm pin placement and adequate reduction. Final images were saved. The Steinmann pins were then cut at the level of the skin and then tamped in further to bury below the skin. We then performed an irrigation and debridement of her lateral chronic ankle wound. We then loosely reapproximated this with interrupted 3-0 nylon sutures x 2. We then applied a sterile dressing including Xeroform, 4 x 4s, and ABD and Kerlix. We then placed a well-padded posterior slab splint. She was extubated and anesthesia was reversed by the anesthesia team. She was taken to the PACU in stable condition. All needle and sponge counts were correct x 2 at the end of the case. ATTESTATION: Dr. Case was present throughout all critical aspects of the case. POSTOPERATIVE CARE: We will reconsult wound care. It is okay to remove the splint for wound care as needed. This can be reapplied. After wound care is performed, she will be strict nonweightbearing on the left lower extremity. <ELECTRONICALLY SIGNED> By: Ezequiel Case DO 12/25/19 1626 [id number] Case DO /nt
--- NOTE | 2019-12-25 17:09 | NUR ---
Pt under reconsideration for inpt rehab; SW to speak with pt and pt family again to discuss possiblities for pt care at home after inpt rehab. SW will follow with LTC as back up plan if/when needed as well.
--- NOTE | 2019-12-25 18:28 | NUR ---
PATIENT RESTING UP IN CHAIR. PATIENT IS UP WITH CHANG LIFT. PATIENT WORKED WITH THERAPIES TODAY. PATIENT REFUSED DRESSING CHANGE TO LEFT LEG TODAY. PATIENT HAS GOOD APPETITE. PATIENT HAS PAIN TO BUTTOCK AND LEFT LEG, TREATED PARTIALLY WITH MEDICATION AND REST. PATIENT DENIES ANY NEEDS AT THIS TIME. CALL LIGHT WITHIN REACH.
[2019-12-25 21:00] VITALS: BP 122/56
--- NOTE | 2019-12-26 05:52 | NUR ---
PATIENT SLEPT MOST OF THE NIGHT. IV VANC WAS GIVEN ORDERED. PATIENT WAS GIVEN PAIN MEDICINE TWICE THIS SHIFT WITH SOME RELIEF. STILL AWAITING PLACEMENT FOR REHAB. WILL CONTINUE TO MONITOR.
[2019-12-26 07:55] VITALS: BP 155/78
[2019-12-26 11:50] LABS: ALBUMIN 2.9 g/dL (3.4-5.0); CALCIUM 8.9 mg/dL (8.5-10.1); POTASSIUM 4.2 mmol/L (3.5-5.1); TOTAL BILIRUBIN 0.3 mg/dL (<0.1-1.0); TOTAL PROTEIN 8.8 g/dL (6.4-8.2)
--- NOTE | 2019-12-26 16:43 | NUR ---
DC pending option for acceptance from inpt rehab and insurance auth. [facility] to follow up with pt for Medicaid pending option. SW to continue to follow to assist with finalizing safe dc plan and placement.
--- NOTE | 2019-12-26 19:54 | NUR ---
PATIENT RESTING IN BED. PATIENT WAS UP TO WHEELCHAIR THIS AM WITH THEWRAPY. PATIENT IS UP WITH CHANG LIFT. NON-WEIGHT BEARING TO LLE. PATIENT HAD DRESSING TO BUTTOCK AND LEFT FOOT THIS EVENING. PATIENT HAS GOOD APPETITE. PATIENT DENIES ANY NEEDS AT THIS TIME. CALL LIGHT WITHIN REACH.
[2019-12-26 20:20] VITALS: BP 115/52
--- NOTE | 2019-12-27 05:13 | NUR ---
PT SLEPT WELL OVERNIGHT. USING BED MULLIGAN FOR BM THIS SHIFT. MALDONADO DRAINING YELLOW URINE. LLE DRSG CDI. BUTTOCK DRSG CDI. REMAINS ON LOW AIR LOSS SPECIALTY BED. ISRAEL PICC SL, ABX GIVEN ORDERED. REMAINS ON CONTACT ISOLATION. PT TURNED AND REPOSITIONED Q2 HOURS AND PRN FOR SKIN CARE AND COMFORT SHE WOULD ALLOW AND/OR REQUEST. AM LABS. ABLE TO USE CALL LITE AND MAKE NEEDS KNOWN. CM FOLLOWING FOR DC PLAN.
[2019-12-27 06:46] LABS: ABSOLUTE EOSINOPHILS 0.3 thou/uL (0.0-0.7); ABSOLUTE LYMPHOCYTES 1.7 thou/uL (0.8-5.3); ABSOLUTE MONOCYTES 0.6 thou/uL (0.0-1.2); ABSOLUTE NEUTROPHILS 6.3 thou/uL (1.6-8.1); BASOPHILS 0.6 %; HEMATOCRIT 31.8 % (37.0-47.0); LYMPHOCYTES 18.8 %; MCH 22.1 pg (26.0-34.0); MCHC 31.6 g/dL (28.0-37.0); MCV 69.9 fL (80.0-100.0); MONOCYTES 6.9 %; MPV 6.8 fl. (7.2-11.1); NUCLEATED RBCS 0 /100WBC; PLATELET COUNT* 300 thou/uL (150-400); POLYS 70.7 %; RBC 4.54 mil/uL (4.20-5.00); RDW-CV 20.7 % (10.5-14.5); WBC 8.9 thou/uL (4.0-11.0)
[2019-12-27 07:02] LABS: ALBUMIN 2.6 g/dL (3.4-5.0); CALCIUM 8.5 mg/dL (8.5-10.1); CREATININE 1.1 mg/dL (0.6-1.3); MAGNESIUM 1.7 mg/dL (1.8-2.4); POTASSIUM 3.9 mmol/L (3.5-5.1); TOTAL BILIRUBIN 0.3 mg/dL (<0.1-1.0); TOTAL PROTEIN 8.3 g/dL (6.4-8.2)
[2019-12-27 10:33] VITALS: BP 116/64
[2019-12-27 16:00] VITALS: BP 137/77
--- NOTE | 2019-12-27 17:34 | NUR ---
PATIENT'S DAUGHTER CAME UP AND BROUGHT HER SOME SNACKS AND TACO MARTE. SHE HAS BEEN RESTING IN THE BED MOST OF THE DAY. PT CAME AND GOT HER UP IN THE WHEELCHAIR AND TOOK HER OUT OF THE ROOM. SHE SAT UP FOR ABOUT AN HOUR AND A HALF. WE PUT HER BACK TO BED WITH THE LIFT AND I DID THE TREATMENT TO HER LEFT BUTTOCK. SHE HAD A LARGE BOWEL MOVEMENT AND WAS CLEANED UP AND IS EATING AT THIS TIME. SHE HAS NOT REQUIRED ANY PAIN MEDICATION THIS SHIFT.
[2019-12-27 19:45] VITALS: BP 110/62
--- NOTE | 2019-12-28 05:28 | NUR ---
PT HAS SLEPT WELL OVERNIGHT AFTER RECEIVING PO PAIN MED AT HS FOR CO BUTTOCK AND LLE PAIN. TOMAS WRAP SPLINT REMAINS CDI TO LLE. ISRAEL PICC SL, ABX GIVEN ORDERED. MALDONADO DRAINING CLEAR YELLOW URINE. PT TURNED AND REPOSITIONED Q2 HOURS AND PRN FOR SKIN CARE AND COMFORT SHE WOULD ALLOW. ON SPECIALTY LOW AIR LOSS DELL BED. PO MAG GIVEN AT HS, AM LABS. USING BEDPAN FOR BM THIS SHIFT. ABLE TO USE CALL LITE AND MAKE NEEDS KNOWN.
[2019-12-28 07:55] VITALS: BP 139/63
[2019-12-28 17:35] VITALS: BP 131/69
--- NOTE | 2019-12-28 18:24 | NUR ---
PT A&OX4 VSS. PT IN SPECIALTY BED R/T SKIN ISSUES. DRESSING TO L BUTTOCK CHANGED THIS SHIFT. PICC TO RUE PATENT, DRESSING C/D/I. PT HAS MALDONADO CATHETER IN PLACE. DEVICE SECURED AND YELLOW URINE VISIBLE IN COLLECTION BAG. PT TRANSFERS W/CHANG TO AND FROM RECLINER. PT INCONTINENT OF BOWELS WHILE UP IN CHAIR. PT ABLE TO CALL FOR BEDPAN WHILE IN BED. IV ABX CONTINUED. PT WAITS FOR DC PLAN/PLACEMENT FOR DC. FAMILY AT BEDSIDE THIS AFTERNOON. PT RESTS IN BED WITH CALL LIGHT IN REACH. WILL CONTINUE TO MONITOR.
[2019-12-28 20:15] VITALS: BP 130/62
--- NOTE | 2019-12-29 05:33 | NUR ---
PT SLEPT OFF AND ON OVERNIGHT. ISRAEL PICC SL, ABX GIVEN ORDERED. DRSG TO LLE CHANGED THIS SHIFT, REMAINS CDI THIS MORNING.BUTTOCK DRSG CDI.AM LABS. PO PAIN MED GIVEN ONCE THIS SHIFT FOR LLE PAIN WITH GOOD RESULT. REMAINS ON SPECIALTY LOW AIR LOSS BED, TURNED AND REPOSITIONED Q4 HOURS AND PRN PT WOULD ALLOW. ABLE TO USE CALL LITE AND MAKE NEEDS KNOWN. REMAINS ON CONTACT ISOLATION FOR MRSA.
[2019-12-29 06:56] LABS: MCH 22.4 pg (26.0-34.0); MCHC 31.4 g/dL (28.0-37.0); MCV 71.2 fL (80.0-100.0); MPV 7.2 fl. (7.2-11.1); RBC 4.49 mil/uL (4.20-5.00); RDW-CV 20.8 % (10.5-14.5); WBC 8.3 thou/uL (4.0-11.0)
[2019-12-29 07:16] LABS: ALBUMIN 2.7 g/dL (3.4-5.0); CALCIUM 8.4 mg/dL (8.5-10.1); CREATININE 0.8 mg/dL (0.6-1.3); MAGNESIUM 1.7 mg/dL (1.8-2.4); POTASSIUM 3.9 mmol/L (3.5-5.1); TOTAL BILIRUBIN 0.3 mg/dL (<0.1-1.0); TOTAL PROTEIN 8.5 g/dL (6.4-8.2)
[2019-12-29 07:40] VITALS: BP 133/78
--- NOTE | 2019-12-29 12:19 | NUR ---
SPOKE WITH ALCIDES FROM [facility]. PATIENT WILL BE A NEW REFERRAL TO DETERMINE MEDICAID ELIGIBILITY. ALCIDES TO FOLLOW UP WITH CM TO LET US KNOW STATUS FOR PATIENT. CM TO CONTINUE TO FOLLOW FOR SAFE DISCHARGE PLANNING
--- NOTE | 2019-12-29 16:47 | NUR ---
SW was informed that pt will be non weight bearing status for 3 months and while inpt will still reconsider possibility for pt to be admitted to inpt rehab for a while, pt would need dc plan towards increased assist at home, issue of stairs, and/or LTC placement. Pt was unavailable at this time and SW tried to call pt dtr with no answer; SW left voicemail message. Still pending answer on whether or not pt will be able to be Medicaid pending; this would be helpful in inpt rehab decision to accept as well since this will help with possibility of LTC placement.
[2019-12-29 17:00] VITALS: BP 136/77
--- NOTE | 2019-12-29 18:16 | NUR ---
PT A&OX4 VSS. PT REMAINED IN BED THIS SHIFT. PICC TO RUE PATENT, DRESSING C/D/I. LOCKED WHEN ABX NOT INFUSING. PT REMAINS CONTINENT OF B/B. PT CONTINUES TO WAIT FOR CASE MGMNT TO MAKE PROGRESS IN DC PLAN. PT REMAINS NWB TO LLE PER ORTHO. PT ACCUCHECK, AM ONLY. NO INSULIN INDICATED. MALDONADO CATHETER PATENT, YELLOW URINE VISIBLE IN COLLECTION BAG. P[T DID NOT REQUEST PAIN MEDICATION THIS SHIFT. PT RESTS IN ROOM WITH CALL LIGHT IN REACH. WILL CONTINUE TO MONITOR.
[2019-12-29 20:30] VITALS: BP 115/65
--- NOTE | 2019-12-30 06:13 | NUR ---
PATIENT SLEPT MOST OF THE NIGHT. PICC LINE REMAINS TO ISRAEL AND WORKING WELL. DRESSING TO L BUTTOCK WAS CHANGED. LEFT ANKLE DRESSING/SPLINT REMAINS INTACT. PATIENT DID NOT ASK FOR ANY PAIN MEDS THIS SHIFT. MALDONADO REMAINS TO DEPENDENT DRAIN. WILL CONTINUE TO MONITOR.
[2019-12-30 08:45] VITALS: BP 136/66
--- NOTE | 2019-12-30 13:35 | NUR ---
SW received call from Rebeca, psychosocial rehabilitation counselor, stating that pt is denied inpt rehab. SW met with pt to discuss dc planning and informed pt of doctor stating medical readiness to dc. Pt aware of not qualifying for Medicaid and reasoning provided was that pt didn't have qualifying disability. Pt said again that she didn't qualify for disability because she didn't work 5 out of the last 10 years. SW discussed need for determining what pt would need to dc home since pt unable to afford LTC option. Pt discussed possibly hiring some care but worries that is not enough and complained about her dtr not wanting to help provide for her care. SW discussed dc needs with Dr Cordon and MARTÍN Monge such as pt equipment for home, HH, etc. SW to follow up again with pt and pt dtr to discuss possible family training.
[2019-12-30 16:00] VITALS: BP 138/78
--- NOTE | 2019-12-30 17:29 | NUR ---
PATIENT WOUND TO COCCYX AND LEFT LEG CHANGED PER PROTOCOL. DR. OLIVIER FROM [facility] NOTIFIED THAT PATIENT IS SUPPOSED TO DISCHARGE HOME TOMORROW AND SUTURES TO LEFT ANKLE REMAIN IN PLACE, NO NEW ORDERS RECEIVED ABOUT DISCONTINUING SUTURES AND PATIENT TO FOLLOW UP IN 1 WEEK FOR REMOVAL. PICC LINE DRESSING CHANGED PER PROTOCOL, SCHED VANC INFUSED ORDERED. PATIENT REFUSING TO TURN, EDUCATION GIVEN. PRN HYDROCODONE GIVEN X 2 FOR PAIN. REMAINS IN CONTACT PRECAUTIONS.
[2019-12-30 20:30] VITALS: BP 131/65
--- NOTE | 2019-12-31 05:20 | NUR ---
PATIENT SLEPT MOST OF THE NIGHT. IV VANC WAS GIVEN ORDERED. MALDONADO REMAINS TO DEPENDENT DRAIN. PATIENT IS SUPPOSED TO BE DISCHARGED HOME TODAY. WILL CONTINUE TO MONITOR.
[2019-12-31 08:08] VITALS: BP 140/77
[2019-12-31] MEDS ORDERED: DOXYCYCLINE 10100 MG PO (08:23)
[2019-12-31] MEDS ORDERED: MIRALAX17 GM PO (08:23)
[2019-12-31 11:29] VITALS: BP 140/77
[2019-12-31 11:40] VITALS: BP 140/77
[2019-12-31 11:46] VITALS: BP 140/77
[2019-12-31 15:20] VITALS: BP 140/77
--- NOTE | 2019-12-31 16:54 | NUR ---
PT TO DISCHARGE HOME PER AMBULANCE. MALDONADO CATHETER AND PICC LINE IN PLACE AND FUNCTIONING. PT WILL LEAVE WITH THEM PER DR JAMES. COPY OF DSCHARGE PAPERWORK TO PT WITH EXPLAINATION. PT VERBALIZED UNDERSTANDING. PRESCRIPTION FOR PAIN MEDICATION GIVEN TO PT. DOXYCYCLINE CALLED INTO PHARMACY BY DR CURIEL.
--- NOTE | 2019-12-31 16:58 | NUR ---
TOSHIA met with pt to discuss dc plan for today; pt to dc home with dtr and assist and HH services and pt decided she would agree to accepting [facility] and w[facility] after all. Pt confident HH services will be able to help train her and her family. Pt to dc home by ambulance; SW to follow up to ensure of DME and HH following pt and to discuss transportation resources beyond ambulance/fire dept assisting pt in and out of house and then [facility] van or other transport providing rides to appts. TOSHIA faxed referral and dc summary to [facility].
== END 2019-12-31 17:09 | disposition home health service (06) | DRG 464 ==
LOC: M.ERS 12:53 → M.TBA-ER 15:11 → M.3W 15:11
PROVIDERS: Internal Medicine; Personal Emergency Response Attendant; Specialist; ADMIT Internal Medicine; ATTEND Internal Medicine
PROC: 0JBR0ZZ Excision of Left Foot Subcutaneous Tissue and Fascia, Open Approach (ICD-10-PCS; 2019-12-17)
PROC: 0SSG3ZZ Reposition Left Ankle Joint, Percutaneous Approach (ICD-10-PCS; 2019-12-18)
PROC: 3E1U38Z Irrigation of Joints using Irrigating Substance, Percutaneous Approach (ICD-10-PCS; 2019-12-18)
PROC: 05HY33Z Insertion of Infusion Device into Upper Vein, Percutaneous Approach (ICD-10-PCS; principal; 2019-12-22)
DX: M14.672 Charcot's joint, left ankle and foot (principal); L03.116 Cellulitis of left lower limb; L97.929 Non-pressure chronic ulcer of unspecified part of left lower leg with unspecified severity; Z68.44 Body mass index [BMI] 60.0-69.9, adult; S93.05XA Dislocation of left ankle joint, initial encounter; F41.9 Anxiety disorder, unspecified; E66.01 Morbid (severe) obesity due to excess calories; E11.621 Type 2 diabetes mellitus with foot ulcer; B95.8 Unspecified staphylococcus as the cause of diseases classified elsewhere; E11.22 Type 2 diabetes mellitus with diabetic chronic kidney disease; X58.XXXA Exposure to other specified factors, initial encounter; Y93.89 Activity, other specified; Y99.8 Other external cause status; E11.40 Type 2 diabetes mellitus with diabetic neuropathy, unspecified; B95.62 Methicillin resistant Staphylococcus aureus infection as the cause of diseases classified elsewhere; I95.2 Hypotension due to drugs; T50.905A Adverse effect of unspecified drugs, medicaments and biological substances, initial encounter; N18.3 Chronic kidney disease, stage 3 (moderate); Z88.6 Allergy status to analgesic agent; Z87.891 Personal history of nicotine dependence; Y92.89 Other specified places as the place of occurrence of the external cause

== ENCOUNTER 2020-02-10 13:07 | Inpatient (IN) | payer BC ==
[~2020-02-10] VITALS: Ht 162.6 cm; Wt 158.8 kg
[~2020-02-10 13:07] MED LIST changes: +DOXYCYCLINE 10100 MG PO; +ELIQUIS2.5 MG PO; +HYDROCODON-ACE1 EAC7 PO; +MIRALAX17 GM PO
[2020-02-10 13:08] VITALS: BP 145/82
[2020-02-10 14:26] LABS: HEMATOCRIT 39.8 % (37.0-47.0); HEMOGLOBIN 12.8 gm/dL (12.0-15.0); MCH 23.1 pg (26.0-34.0); MCHC 32.3 g/dL (28.0-37.0); MCV 71.3 fL (80.0-100.0); MPV 7.6 fl. (7.2-11.1); NUCLEATED RBCS 0 /100WBC; PLATELET COUNT* 330 thou/uL (150-400); RBC 5.57 mil/uL (4.20-5.00); RDW-CV 21.4 % (10.5-14.5); WBC 11.9 thou/uL (4.0-11.0)
[2020-02-10 14:32] LABS: CALCIUM 8.7 mg/dL (8.5-10.1); CREATININE 0.9 mg/dL (0.6-1.3); POTASSIUM 3.7 mmol/L (3.5-5.1)
[2020-02-10 14:37] LABS: TOTAL BILIRUBIN 0.3 mg/dL (<0.1-1.0); TOTAL PROTEIN 8.2 g/dL (6.4-8.2)
[2020-02-10 15:30] LABS: BE 5.5 mmol/L (-2 to +3); pH 7.389 (7.340-7.450)
[2020-02-10 15:36] LABS: PCO2 54.1 mmHg (35.0-45.0); PO2 144.9 mmHg (75.0-100.0)
[2020-02-10 16:07] LABS: ABSOLUTE EOSINOPHILS 0.5 thou/uL (0.0-0.7); ABSOLUTE LYMPHOCYTES 3.9 thou/uL (0.8-5.3); ABSOLUTE NEUTROPHILS 6.5 thou/uL (1.6-8.1); PLATELET ESTIMATE ADEQUATE
[2020-02-10 16:08] LABS: ANISOCYTOSIS 2+; HYPOCHROMASIA 1+; MICROCYTES 1+; POLYCHROMASIA 1+
[2020-02-10 21:50] VITALS: BP 133/73
--- NOTE | 2020-02-11 13:46 | EKG ---
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: RE : 1960 Requested By: Amaya Roy Order Number: [id number] MD: Mainor Kenny Measurements Intervals [place] Rate: 93 P: 42 CO: 142 QRS: 96 QRSD: 88 T: 40 QT: 374 QTc: 466 Interpretive Statements Sinus rhythm rsr' in V1 Borderline right axis deviation Borderline T abnormalities, anterior leads Compared to ECG 10/31/2019 03:07:49 no change Electronically Signed On 02-11-2020 13:46:14 CDT by Mainor Kenny [email or web address] <ELECTRONICALLY SIGNED> By: Mainor Kenny MD, FAC 02/11/20 1346 1554 1554 Mainor Kenny MD, FAC /EPI
== END 2020-02-10 21:50 | disposition home or self-care (01) | DRG 560 ==
LOC: M.ERS 13:07 → M.TBA-ER 14:39
PROVIDERS: Physician Assistant; ADMIT Internal Medicine; ATTEND Internal Medicine
DX: T84.197A Other mechanical complication of internal fixation device of bone of left lower leg, initial encounter (principal); Z68.44 Body mass index [BMI] 60.0-69.9, adult; Y83.8 Other surgical procedures as the cause of abnormal reaction of the patient, or of later complication, without mention of misadventure at the time of the procedure; E66.01 Morbid (severe) obesity due to excess calories; F17.210 Nicotine dependence, cigarettes, uncomplicated; E11.610 Type 2 diabetes mellitus with diabetic neuropathic arthropathy; I89.0 Lymphedema, not elsewhere classified; F41.9 Anxiety disorder, unspecified; Y92.89 Other specified places as the place of occurrence of the external cause; Z91.14 Patient's other noncompliance with medication regimen; Z79.84 Long term (current) use of oral hypoglycemic drugs; Z79.899 Other long term (current) drug therapy; Z03.818 Encounter for observation for suspected exposure to other biological agents ruled out; Y83.1 Surgical operation with implant of artificial internal device as the cause of abnormal reaction of the patient, or of later complication, without mention of misadventure at the time of the procedure